=== PATIENT | male | born 1955 | race Caucasian/White ===

== ENCOUNTER 2024-08-07 09:37 | Inpatient (IN) | payer OTHER, SELFPAY ==
[2024-08-07] VITALS (10 sets, daily range): BP systolic 108–136; BP diastolic 65–110; BMI 22.3
--- NOTE | 2024-08-07 09:45 | PTCARENOTE ---
Patient admitted to IVU. SR on telemetry, call winchester in reach
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
[2024-08-07] MEDS: PROTONIX 40 MG PO (13:30)
[2024-08-07] MEDS: KCL 20 MEQ PO (13:31)
[2024-08-07] MEDS: LASIX 40 MG IV (13:31)
[2024-08-07] MEDS: COREG 3.125 MG PO ×2 (13:31→19:42)
[2024-08-07] MEDS: ROXICODONE 2.5 MG PO (13:31)
[2024-08-07] MEDS: LOW STRENGTH ASPIRIN 81 MG PO (13:31)
[2024-08-07 15:10] LABS: Hematocrit 46.1 % (39.0-52.0); Hemoglobin 16.3 g/dL (13.0-18.0); Mean Corp Hgb Conc. 35.4 g/dL (33.0-37.0); Mean Corpuscular Hgb 32.2 pg (27.0-31.0); Mean Corpuscular Volume 91.1 fL (80.0-94.0); Mean Platelet Volume 9.4 fL (7.4-10.4); Platelet Count 219 10^3/uL (130-400); Red Blood Cell Count 5.06 10^6/uL (4.70-6.10); Red Cell Dist. Width 15.9 % (11.5-14.5)
[2024-08-07 15:24] LABS: INR 1.14; PT 14.4 Sec (11.4-14.6)
[2024-08-07 15:25] LABS: APTT 31.9 Sec (23.4-35.0)
[2024-08-07 15:28] LABS: ALT (SGPT) 26 U/L (0-50); AST (SGOT) 38 U/L (17-59); Albumin 4.6 g/dl (3.5-5.0); Alkaline Phosphatase 91 U/L (38-126); Blood Urea Nitrogen 25 mg/dl (9-20); Calcium 9.9 mg/dl (8.4-10.2); Carbon Dioxide 26 mmol/L (22-30); Chloride 99 mmol/L (98-107); Direct Bilirubin 0.4 mg/dl (0.0-0.4); Estimated Creatinine Clearance 88 ml/min; Glucose 106 mg/dl (70-99); Potassium 4.7 mmol/L (3.5-5.1); Sodium 138 mmol/L (135-145); Total Bilirubin 1.6 mg/dl (0.2-1.3); Total Protein 7.3 g/dl (6.3-8.2); eGFR > 60.00
[2024-08-07] MEDS: VENTOLIN NEBULES 2.5 MG INH (16:04)
[2024-08-07] MEDS: LIPITOR 40 MG PO (16:26)
[2024-08-07] MEDS: NEURONTIN 100 MG PO ×2 (16:26→21:13)
[2024-08-07] MEDS: TYLENOL 650 MG PO (16:26)
[2024-08-07] MEDS: LOVENOX 40 MG SC (16:54)
--- NOTE | 2024-08-07 17:07 | PTCARENOTE ---
Patient with 9 out 10 back pain. Oxycodone dose increased to manage his pain control
[2024-08-07] MEDS: ROXICODONE 5 MG PO ×2 (17:22→21:12)
[2024-08-07] MEDS: COLACE PO (19:41)
--- NOTE | 2024-08-07 20:45 | PTCARENOTE ---
Pt. recieved at change of shift. Pt. seen and assessed in room. at bedside. Pt. Aox3, tele reading NSR, VS WNL. No complaints at this time. PT. verbalizes understanding of POC. Call winchester within reach. Continuing to monitor at this time.
[2024-08-07] MEDS: MELATONIN 5 MG PO (21:13)
[2024-08-08] VITALS (14 sets, daily range): BP systolic 99–136; BP diastolic 70–103; PULSE 68–104; BMI 22.2
[2024-08-08] MEDS: ROXICODONE 5 MG PO ×5 (01:39→22:36)
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
--- NOTE | 2024-08-08 09:31 | PTCARENOTE ---
Patient sent for his CT on a stretcher.
[2024-08-08 09:44] LABS: Glycohemoglobin (HgbA1c) 5.8 % (4.0-5.6)
[2024-08-08] MEDS: PROTONIX 40 MG PO (09:45)
[2024-08-08] MEDS: KCL 20 MEQ PO (09:45)
[2024-08-08] MEDS: NEURONTIN 100 MG PO ×3 (09:45→21:17)
[2024-08-08] MEDS: LOW STRENGTH ASPIRIN 81 MG PO (09:46)
[2024-08-08] MEDS: COLACE 100 MG PO ×2 (09:46→21:17)
[2024-08-08] MEDS: COREG 3.125 MG PO ×2 (09:46→21:17)
[2024-08-08] MEDS: LASIX 40 MG IV (09:46)
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
[2024-08-08 14:58] LABS: Hematocrit 48.9 % (39.0-52.0); Hemoglobin 16.8 g/dL (13.0-18.0); Mean Corp Hgb Conc. 34.4 g/dL (33.0-37.0); Mean Corpuscular Hgb 31.9 pg (27.0-31.0); Platelet Count 246 10^3/uL (130-400); Red Blood Cell Count 5.26 10^6/uL (4.70-6.10); White Blood Cell Count 4.8 10^3/uL (4.8-10.8)
[2024-08-08 15:50] LABS: Blood Urea Nitrogen 25 mg/dl (9-20); Carbon Dioxide 31 mmol/L (22-30); Chloride 95 mmol/L (98-107); Estimated Creatinine Clearance 78 ml/min; Glucose 106 mg/dl (70-99); Potassium 5.3 mmol/L (3.5-5.1); Sodium 141 mmol/L (135-145); eGFR > 60.00
[2024-08-08] MEDS: LOVENOX 40 MG SC (18:27)
[2024-08-08] MEDS: LIPITOR 40 MG PO (18:27)
[2024-08-08] MEDS: MELATONIN 5 MG PO (21:16)
[2024-08-09] VITALS (8 sets, daily range): BP systolic 104–136; BP diastolic 79–114; BMI 21.9
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
[2024-08-09] MEDS: ROXICODONE 5 MG PO ×5 (03:45→22:30)
[2024-08-09 04:53] LABS: ALT (SGPT) 32 U/L (0-50); AST (SGOT) 48 U/L (17-59); Albumin 4.4 g/dl (3.5-5.0); Alkaline Phosphatase 93 U/L (38-126); Blood Urea Nitrogen 28 mg/dl (9-20); Calcium 10.1 mg/dl (8.4-10.2); Carbon Dioxide 28 mmol/L (22-30); Chloride 98 mmol/L (98-107); Estimated Creatinine Clearance 77 ml/min; Glucose 102 mg/dl (70-99); Potassium 4.7 mmol/L (3.5-5.1); Sodium 137 mmol/L (135-145); Total Bilirubin 1.5 mg/dl (0.2-1.3); eGFR > 60.00
--- NOTE | 2024-08-09 05:27 | PTCARENOTE ---
Pt NSR on monitor, VSS. Denies pain, discomfort or SOB. Ambulates independently in the room. All safety measures in place.
[2024-08-09] MEDS: PROTONIX 40 MG PO (08:03)
[2024-08-09] MEDS: COLACE 100 MG PO ×2 (08:03→20:14)
[2024-08-09] MEDS: NEURONTIN 100 MG PO ×3 (08:04→21:35)
[2024-08-09] MEDS: LOW STRENGTH ASPIRIN 81 MG PO (08:04)
[2024-08-09] MEDS: COREG 3.125 MG PO ×2 (08:04→20:15)
--- NOTE | 2024-08-09 08:10 | PTCARENOTE ---
Assumed care of pt from prev nsg shift; pt AAOx3 w/no c/o CP or SOB. Pt c/o 08/19 low back pain, which is chronic for him. PRN PO Oxycodone administered as ordered. Pt's VS stable w/HR 70's, BP this AM 104/79. Pt SR w/occas PVC's on telemetry
monitoring. Pt awaiting U/S this AM. Pt w/call winchester in reach & plan of care ongoing.
--- NOTE | 2024-08-09 09:28 | W.PN.CD ---
Today's Communication / Plan
-
Cont coreg and further CABG pre-op testing
Impression / Plan
-
69-year-old gentleman with history of coronary artery disease with triple-vessel disease identified on recent cardiac catheterization on 08/06/2024, with history of thoracic aortic aneurysm, nonsustained ventricular tachycardia, hypertension
hyperlipidemia and likely ischemic cardiomyopathy with LVEF of 30% showing wall motion abnormalities.
Coronary artery disease
-Severe coronary disease with disease involving all 3 vessels and 100% LAD occluded with 100% RCA occluded filling with collaterals consistent with MARKETING DATABASE ANALYST and 80% of the circumflex and OM1 disease; left main also has moderate significant disease.
-CABG eval and surgery possibly late this week
-Continue aspirin, coreg 3.125 mg bid, and lipitor, holding ARB/ARNi and SGLT2i in anticipation of surgery
-BP 100s today, may limit GDMT, will have case management valdovinos ARNI and sglt2i
-CT surgery workup including PFTs, carotid duplex and CTA planned.
Ischemic cardiomyopathy w/ moderate to severely reduced EF 30%
-Significant wall motion abnormalities identified. Hopeful will improve with revascularization with CABG.
-RCA is MARKETING DATABASE ANALYST but fills from circumflex circulation
-GDMT as above
-Echo from jesse Moreno was uploaded and reviewed personally.
Physical Exam
Vital Signs/Labs
Vital Signs
Temp Pulse Resp BP Pulse Ox
97.7 F 74 18 104/79 18
08/09/24 07:52 08/09/24 07:47 08/09/24 07:52 08/09/24 07:47 08/09/24 07:52
08/08/24 08/09/24 08/10/24
06:59 06:59 06:59
Actual Weight 154 lb 12.232 oz 152 lb 12.485 oz
08/08/24 14:52
08/09/24 03:57
PT 14.4 Sec (11.4-14.6) 08/07/24 15:01
INR 1.14 08/07/24 15:01
APTT 31.9 Sec (23.4-35.0) 08/07/24 15:01
Physical Exam
Constitutional: No acute distress
EENT: Anicteric
Cardiovascular: Rhythm & rate is regular and Pedal edema is absent
Respiratory: Respiratory effort normal and Lungs clear to auscul.
GI: Soft
Neuro/Psych: AO x 3
Data Reviewed
-
Date of Service: August 09, 2024
EKG: Tracing Personally Visualized and interpreted (sr)
Echo: Report Reviewed by me
Labs: Labs Reviewed by me
[2024-08-09] MEDS: FLUSH (NSS) 2 FLUSH IV (09:51)
[2024-08-09] MEDS: LASIX 40 MG IV (09:51)
--- NOTE | 2024-08-09 13:30 | CM ---
Reviewed chart. Met with Mr. Crane to review discharge plans. He states prior to admission he resides with his spouse in a two story home with one step to enter. He states he has a bedroom/full bathroom on each level. He states he has a
[id number] in the first floor. He states his daughter is a student a [employer]. He states his spouse works in IT at the [employer]. He states prior to admission he was independent with ambulation and adls. He has a
rolling walker at home but currently is not using it. He states he has a prescription plan thru his spouse [employer]. Medical work-up in progress. The discharge plan is to return home with his spouse and [facility] when medically stable.
[2024-08-09] MEDS: LOVENOX 40 MG SC (17:07)
[2024-08-09] MEDS: LIPITOR 40 MG PO (17:08)
[2024-08-09 21:19] LABS: Hepatitis C Antibody Negative (Negative)
[2024-08-09] MEDS: MELATONIN 5 MG PO (21:35)
[2024-08-10] VITALS (8 sets, daily range): BP systolic 104–127; BP diastolic 75–104; BMI 21.8
[2024-08-10] MEDS: ROXICODONE 5 MG PO ×4 (04:44→20:05)
[2024-08-10] MEDS: COREG 3.125 MG PO ×2 (09:10→20:07)
[2024-08-10] MEDS: MIRALAX 17 GRAMS PO (09:10)
[2024-08-10] MEDS: COLACE 100 MG PO ×2 (09:11→20:07)
[2024-08-10] MEDS: FLUSH (NSS) 2 FLUSH IV (09:11)
[2024-08-10] MEDS: NEURONTIN 100 MG PO ×3 (09:11→20:05)
[2024-08-10] MEDS: LASIX 40 MG IV (09:11)
[2024-08-10] MEDS: PROTONIX 40 MG PO (09:11)
[2024-08-10] MEDS: LOW STRENGTH ASPIRIN 81 MG PO (09:12)
--- NOTE | 2024-08-10 09:45 | PTCARENOTE ---
Assumed care of pt from prev nsg shift; pt AAOx3 w/no c/o CP or SOB. Pt c/o 9/10 low back & neck pain. PRN PO Oxycodone administered as ordered. Pt's VS stable w/HR 70's, BP this AM elevated at 127/100. Will recheck after meds administered. Pt SR
w/occas PVC's on telemetry monitoring. Pt awaiting PFT this AM. Pt w/call winchester in reach & plan of care ongoing.
--- NOTE | 2024-08-10 10:39 | W.PN.CD ---
Today's Communication / Plan
-
CT Surgery eval underway
Impression / Plan
-
69-year-old gentleman with history of coronary artery disease with triple-vessel disease identified on recent cardiac catheterization on 08/06/2024, with history of thoracic aortic aneurysm, nonsustained ventricular tachycardia, hypertension
hyperlipidemia and likely ischemic cardiomyopathy with LVEF of 30% showing wall motion abnormalities.
Coronary artery disease
-Severe coronary disease with disease involving all 3 vessels and 100% LAD occluded with 100% RCA occluded filling with collaterals consistent with RV REPAIRER and 80% of the circumflex and OM1 disease; left main also has moderate significant disease.
-CABG eval and surgery possibly late this week
-Continue aspirin, coreg 3.125 mg bid, and lipitor, holding ARB/ARNi and SGLT2i in anticipation of surgery
-BP 100s today, may limit GDMT, will have case management valdovinos ARNI and sglt2i
-CT surgery workup including PFTs, carotid duplex and CTA planned.
Ischemic cardiomyopathy w/ moderate to severely reduced EF 30%
-Significant wall motion abnormalities identified. Hopeful will improve with revascularization with CABG.
-RCA is RV REPAIRER but fills from circumflex circulation
-GDMT as above
-Echo from jesse Moreno was uploaded and reviewed personally.
NSVT
- One episode 6 beats at 1726 hrs on 08/09/2024
Subjective:
No CP or palps
Physical Exam
Vital Signs/Labs
Vital Signs
Temp Pulse Resp BP Pulse Ox
98.8 F 79 20 127/100 96
08/10/24 08:16 08/10/24 08:30 08/10/24 08:16 08/10/24 08:25 08/10/24 08:16
08/09/24 08/10/24 08/11/24
06:59 06:59 06:59
Actual Weight 69.3 kg 69 kg
08/08/24 14:52
08/09/24 03:57
PT 14.4 Sec (11.4-14.6) 08/07/24 15:01
INR 1.14 08/07/24 15:01
APTT 31.9 Sec (23.4-35.0) 08/07/24 15:01
Physical Exam
Constitutional: No acute distress
EENT: Anicteric
Cardiovascular: Rhythm & rate is regular and Pedal edema is absent
Respiratory: Respiratory effort normal and Lungs clear to auscul.
GI: Soft and Distention absent
Neuro/Psych: AO x 3
Data Reviewed
-
Date of Service: August 10, 2024
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
[2024-08-10] MEDS: LOVENOX 40 MG SC (17:55)
[2024-08-10] MEDS: LIPITOR 40 MG PO (17:55)
[2024-08-10] MEDS: MELATONIN 5 MG PO (20:05)
[2024-08-10] MEDS: DUONEB 3 ML INH (20:49)
[2024-08-11] MEDS: ROXICODONE 5 MG PO ×4 (00:27→20:51)
[2024-08-11 05:37] VITALS: BP 140/96
[2024-08-11 06:00] VITALS: BMI 21.8
[2024-08-11 07:31] VITALS: BP 118/92
[2024-08-11] MEDS: DUONEB 3 ML INH ×3 (07:42→19:19)
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
[2024-08-11] MEDS: PROTONIX 40 MG PO (08:46)
[2024-08-11] MEDS: FLUSH (NSS) 2 FLUSH IV (08:46)
[2024-08-11] MEDS: COLACE 100 MG PO ×2 (08:46→20:46)
[2024-08-11] MEDS: LOW STRENGTH ASPIRIN 81 MG PO (08:46)
[2024-08-11] MEDS: COREG 3.125 MG PO ×2 (08:46→20:46)
[2024-08-11] MEDS: LASIX 40 MG IV (08:46)
[2024-08-11] MEDS: NEURONTIN 100 MG PO ×3 (08:46→22:37)
--- NOTE | 2024-08-11 09:12 | W.PN.UPDATE ---
Update Note
Progress Note Update
pt seen and examined
cath and imaging reviewed
I agree he is a candidate for high risk cabg given significant lung disease and significant LV dysfunction
Risks, complications, benefits and alternatives all reviewed with patient
He appears to understand and is agreeable to proceed.
check echo today
repeat bili
cabg Friday am
--- NOTE | 2024-08-11 09:16 | W.PN.CD ---
Today's Communication / Plan
-
Dr. Townsend plans high risk CABG Friday
NSVT noted, continue telemetry
For echo today
52 min today spent reviewing extensive data (all the precabg testing) and pulmonary notes, seeing pt, reviewing tele, preparing this document
Impression / Plan
-
69-year-old gentleman with history of coronary artery disease with triple-vessel disease identified on recent cardiac catheterization on 08/06/2024, with history of thoracic aortic aneurysm, nonsustained ventricular tachycardia, hypertension
hyperlipidemia and likely ischemic cardiomyopathy with LVEF of 30% showing wall motion abnormalities.
Coronary artery disease
-Severe coronary disease with disease involving all 3 vessels and 100% LAD occluded with 100% RCA occluded filling with collaterals consistent with TINSMITH APPRENTICE and 80% of the circumflex and OM1 disease; left main also has moderate significant disease.
-CABG eval => for high risk CABG 08/13/2024
-Continue aspirin, coreg 3.125 mg bid, and lipitor, holding ARB/ARNi and SGLT2i in anticipation of surgery
-BP 100-120 over 24 hrs
- case management valdovinos ARNI and sglt2i
Ischemic cardiomyopathy w/ moderate to severely reduced EF 30%
-Significant wall motion abnormalities identified. Hopeful will improve with revascularization with CABG.
-RCA is TINSMITH APPRENTICE but fills from circumflex circulation
-GDMT as above
Lung disease, see PFTs, imaging studies, and pulmonary notes
- COPD, low DLCO, low FEV1, extrinsic restriction as well from kyphosis/scoliosis
- Pulmonary involved
Thoracic aorta enlargement noted on CT: ascending aorta, short axis diameter 4.1 cm
NSVT
- One episode 6 beats at 1726 hrs on 08/09/2024 and a 4 beat epsiode since
Subjective:
No CP or palps
Physical Exam
Vital Signs/Labs
Vital Signs
Temp Pulse Resp BP Pulse Ox
98.5 F 72 16 118/92 96
08/11/24 07:29 08/11/24 07:45 08/11/24 07:45 08/11/24 07:31 08/11/24 08:36
08/10/24 08/11/24 08/12/24
06:59 06:59 06:59
Actual Weight 69 kg 68.8 kg
08/08/24 14:52
08/09/24 03:57
PT 14.4 Sec (11.4-14.6) 08/07/24 15:01
INR 1.14 08/07/24 15:01
APTT 31.9 Sec (23.4-35.0) 08/07/24 15:01
Physical Exam
Constitutional: No acute distress
EENT: Anicteric
Cardiovascular: Rhythm & rate is regular and Pedal edema is absent
Respiratory: Respiratory effort normal and Lungs clear to auscul.
GI: Soft and Distention absent
Neuro/Psych: Alert
Data Reviewed
-
Date of Service: August 11, 2024
--- NOTE | 2024-08-11 09:34 | PTCARENOTE ---
Assumed care of pt from prev nsg shift; pt AAOx3 w/no c/o CP or SOB. Pt c/o 07/20 low back & neck pain. PRN PO Oxycodone administered by prev nsg shift. Pt advised of the next time he is able to receive PRN oxycodone. Pt's VS stable w/HR 70's, BP
this AM elevated at 118/92. Pt SR w/occas PVC's on telemetry monitoring. Pt w/call [place] in reach & plan of care ongoing.
--- NOTE | 2024-08-11 09:58 | W.PN.UPDATE ---
Update Note
Progress Note Update
Simulated Patient Summary
Procedure Type:�Isolated CABG
PERIOPERATIVE OUTCOME ESTIMATE %
Operative Mortality 2.54%
Morbidity & Mortality 9.98%
Stroke 1.5%
Renal Failure 0.68%
Reoperation 4.33%
Prolonged Ventilation 4.77%
Deep Sternal Wound Infection 0.069%
Long Hospital Stay (>14 days) 5.05%
Short Hospital Stay (<6 days)* 35.1%
*higher values reflect a better outcome
Clinical Summary
Planned Surgery: Isolated CABG, Urgent, First cardiovascular surgery
Demographics: 69 year old, White, male, 68kg, 178cm, BMI: 21.5 kg/m�
Insurance/Payor: Commercial
Lab Values: Creatinine: 0.9 mg/dL, Hematocrit: 48%, WBC Count: 4.8 10�/�L, Platelet Count: 537142 cells/�L
Substance Abuse: Former smoker, Alcohol use: <=1 drink/week
Risk Factors / Comorbidities: Hypertension, Family Hx of CAD
Pulmonary RF: Severe CLD
Vascular RF: Cerebrovascular Disease: TIA
Cardiac Status: Ejection Fraction = 30%
Coronary Artery Disease: 3 vessels diseased, Proximal LAD Stenosis >=70%, Non-ST Elevation WA, WA: 1 to 7 Days
Valve Disease: Moderate MR, Mild TR
Arrhythmia:
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
[2024-08-11 11:50] VITALS: BP 107/80
--- NOTE | 2024-08-11 12:50 | CARDSERVLU ---
Echocardiogram with [facility] completed after protocol screening completed. Allergies verified.
Patent IV site: __L AC___
IV site flushed with 0.9% NaCl pre and post administration.
Diluted bolus method utilized to enhance visualization of ventricular thakkar.
Total volume given: _2___ mL
Patient tolerated all procedures well without complications.
--- NOTE | 2024-08-11 13:47 | CM ---
Chart reviewed. Patient is independent of ADLS, lives with his in a 2 [address], 1 TALHA, 0 DME. Patient is going for surgery on Friday. Plan is for the patient to return home with CT Transitional RN. CM to follow
[2024-08-11 15:04] VITALS: BP 115/91
--- NOTE | 2024-08-11 15:54 | CM ---
Reviewed preoperative and postoperative instructions and restrictions, along with showering guidelines. Gave patient CT Surgery Book. Patient may be out of driving radius for CT Transitional RN. Plan is for the patient to return home with CT
Transitional RN vs VN. CM to follow
[2024-08-11] MEDS: LIPITOR 40 MG PO (16:28)
[2024-08-11 19:08] VITALS: BP 135/91
[2024-08-11 22:35] VITALS: BP 116/88
[2024-08-11] MEDS: MELATONIN 5 MG PO (22:36)
--- NOTE | 2024-08-11 23:19 | PTCARENOTE ---
Pt rec'd sitting on side of bed at change of shift talking with spouse. Sinus on telemetry with occ pvc's noted. Medicated for pain 8 out of 10 for various places lower back, left side face. IS encouraged.
[2024-08-12] VITALS (10 sets, daily range): BP systolic 112–126; BP diastolic 84–100; BMI 21.6
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
[2024-08-12 05:42] LABS: ALT (SGPT) 39 U/L (0-50); AST (SGOT) 48 U/L (17-59); Albumin 4.3 g/dl (3.5-5.0); Alkaline Phosphatase 92 U/L (38-126); Blood Urea Nitrogen 27 mg/dl (9-20); Calcium 9.6 mg/dl (8.4-10.2); Carbon Dioxide 32 mmol/L (22-30); Chloride 93 mmol/L (98-107); Estimated Creatinine Clearance 76 ml/min; Glucose 93 mg/dl (70-99); Potassium 4.3 mmol/L (3.5-5.1); Sodium 137 mmol/L (135-145); Total Bilirubin 1.6 mg/dl (0.2-1.3); eGFR > 60.00
[2024-08-12] MEDS: LOW STRENGTH ASPIRIN 81 MG PO (07:29)
[2024-08-12] MEDS: COREG 3.125 MG PO ×2 (07:29→20:14)
[2024-08-12] MEDS: NEURONTIN 100 MG PO ×3 (07:29→22:24)
[2024-08-12] MEDS: PROTONIX 40 MG PO (07:29)
[2024-08-12] MEDS: COLACE 100 MG PO ×2 (07:30→20:14)
[2024-08-12] MEDS: LASIX 40 MG IV (07:30)
[2024-08-12] MEDS: DUONEB 3 ML INH ×3 (08:11→19:21)
--- NOTE | 2024-08-12 09:48 | CM ---
Reviewed chart. Met with Mr. Crane to review discharge plans. He states he is scheduled for surgery on 08/13/24. He is not sure if he spouse will be here or stay home during the surgery. He is asking about [facility] paperwork for his spouse to
take off to assist in his care. Prior to admission he resides with his spouse in a two story home. He has a bedroom/full bathroom on both levels of the home. His spouse works outside the home at [employer] in IT. Prior to
admission he was independent with ambulation and adls. He states he has a walker at home but currently not using it. He has a prescription plan. Medical work-up in [facility]. The discharge plan is to return home with his spouse and [facility] when
medically stable.
--- NOTE | 2024-08-12 11:37 | W.PN.CD ---
Today's Communication / Plan
-
High risk CABG tomorrow
NSVT on tele
GDMT after surgery
Impression / Plan
-
69-year-old gentleman with history of coronary artery disease with triple-vessel disease identified on recent cardiac catheterization on 08/06/2024, with history of thoracic aortic aneurysm, nonsustained ventricular tachycardia, hypertension
hyperlipidemia and likely ischemic cardiomyopathy with LVEF of 30% showing wall motion abnormalities.
Coronary artery disease
-Severe coronary disease with disease involving all 3 vessels and 100% LAD occluded with 100% RCA occluded filling with collaterals consistent with SPARES SCHEDULER and 80% of the circumflex and OM1 disease; left main also has moderate significant disease.
-CABG eval => for high risk CABG 08/13/2024
-Continue aspirin, coreg 3.125 mg bid, and lipitor, holding ARB/ARNi and SGLT2i in anticipation of surgery
-BP 100-120 over 24 hrs
- case management valdovinos ARNI and sglt2i
Ischemic cardiomyopathy w/ moderate to severely reduced EF 30%
-Significant wall motion abnormalities identified. Hopeful will improve with revascularization with CABG.
-RCA is SPARES SCHEDULER but fills from circumflex circulation
-GDMT as above
Lung disease, see PFTs, imaging studies, and pulmonary notes
- COPD, low DLCO, low FEV1, extrinsic restriction as well from kyphosis/scoliosis
- Pulmonary involved
Thoracic aorta enlargement noted on CT: ascending aorta, short axis diameter 4.1 cm
NSVT
- One episode 6 beats at 1726 hrs on 08/09/2024 and a 4 beat episode since
-rare
Subjective:
Overall feeling OK anxious about surgery tomorrow
Echo:CONCLUSIONS
Mildly dilated left ventricle with severely reduced systolic function. Left
ventricular ejection fraction is 25 to 30%. Global hypokinesis. No
intracardiac thrombus.
Right ventricle is normal in size with mildly reduced function.
Mild mitral regurgitation.
Mild tricuspid regurgitation. Estimated PASP 25 mmHg.
Mildly dilated ascending aorta.
No prior study available for comparison.
Physical Exam
Vital Signs/Labs
Vital Signs
Temp Pulse Resp BP Pulse Ox
98.2 F 74 16 120/90 95
08/12/24 07:41 08/12/24 08:16 08/12/24 08:16 08/12/24 07:44 08/12/24 08:16
08/11/24 08/12/24 08/13/24
06:59 06:59 06:59
Actual Weight 151 lb 10.848 oz 150 lb 5.684 oz
08/08/24 14:52
08/12/24 04:41
PT 14.4 Sec (11.4-14.6) 08/07/24 15:01
INR 1.14 08/07/24 15:01
APTT 31.9 Sec (23.4-35.0) 08/07/24 15:01
Physical Exam
Constitutional: No acute distress and Comfortable
EENT: Anicteric
Cardiovascular: Rhythm & rate is regular and Pedal edema is absent
Respiratory: Respiratory effort normal and Lungs clear to auscul.
GI: Soft
Neuro/Psych: AO x 3
Data Reviewed
-
Date of Service: August 12, 2024
EKG: Tracing Personally Visualized and interpreted (sr)
Echo: Report Reviewed by me
Labs: Labs Reviewed by me
--- NOTE | 2024-08-12 12:05 | PTCARENOTE ---
Pt received this am with no c/o of any chest pain or sob. OOB ad capo in the room, gait steady.
[2024-08-12] MEDS: ROXICODONE 5 MG PO ×3 (13:19→22:23)
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
[2024-08-12] MEDS: LIPITOR 40 MG PO (17:28)
--- NOTE | 2024-08-12 18:13 | PTCARENOTE ---
Pt with no c/o of any chest pain or sob. Ambulating in the room and hallway, gait steady.
[2024-08-12] MEDS: MELATONIN 5 MG PO (22:23)
[2024-08-13] VITALS (15 sets, daily range): BP systolic 96–130; BP diastolic 69–98; BMI 24.4
--- NOTE | 2024-08-13 00:10 | PTCARENOTE ---
Vape pen visible on patients table. this RN educated patient and spouse on hospital smoking policy and danger of smoking in room. patient verbalized understanding. nursing case supervisor-Hedy made aware. vape sent home with spouse.
--- NOTE | 2024-08-13 00:13 | PTCARENOTE ---
CVOR prep completed. patient tolerated well. denies any cp/sob. complains of neck and lower back pain-PRN oxycodone given, see mar. reviewed plan of care with patient and verbalized understanding. call [place] within reach. NPO at midnight.
[2024-08-13] MEDS: LOPRESSOR 25 MG PO (06:15)
[2024-08-13] MEDS: MAGNESIUM OXIDE 500 MG PO (06:15)
[2024-08-13] MEDS: PROTONIX 40 MG PO (06:15)
[2024-08-13] MEDS: BACTROBAN 2% OINTMENT 1 APPLIC NASAL ×2 (06:20→21:03)
--- NOTE | 2024-08-13 06:57 | W.CVOR.SURPR ---
CVOR Surgeon Immed Pre Op
-
I have examined this patient prior to performance of the scheduled procedure.
The patient's condition is unchanged from the time of the dictated/written History and
Physical and the patient is able to undergo the scheduled procedure.
[2024-08-13 07:35] LABS: ACT+ - POC 109 Seconds (82-134)
[2024-08-13] MEDS: DUONEB INH (08:01)
[2024-08-13 08:11] LABS: Urine Albumin Negative (Neg - Trace); Urine Bilirubin Negative (Negative); Urine Character Clear (Clear); Urine Color Yellow; Urine Glucose Negative (Negative); Urine Ketone Negative (Negative); Urine Leukocyte Negative (Negative); Urine Nitrite Negative (Negative); Urine Occult Blood Negative (Negative); Urine Urobilinogen Negative (Neg - 1+)
--- NOTE | 2024-08-13 09:13 | CM ---
Addendum entered by MICHELLE Cid 08/13/24 14:31:
Referral sent to [facility] as [facility] Transitional Care RN unable to visit due to geographical area.
[facility] able to accept.
Will update them on DC date.
Original Note:
Patient in OR today for CABG.
Pt. resides in a 2 story home w/ spouse. Functionally, patient is indep. w/ ADLs, mobility without the use of any assisted device.
Anticipate DC to home once medically stable w/ ? CT Transitional Care RN, if geographical area is feasible.
Will follow.
[2024-08-13 09:39] LABS: ACT+ - POC 625 Seconds (82-134)
[2024-08-13 10:29] LABS: B.E. - POC 3.1 mmol/L; Glucose - POC 105 mg/dl (70-99); HCO3 - POC 29 mmol/L (21-29); Hematocrit - POC 49 % PCV (42-52); Hemodilution- POC Yes; Hemoglobin Calculated - POC 16.6; Ionized Calcium - POC 1.23 mmol/L (1.12-1.27); O2 Saturation %Calculated-POC 98.5 5 (92-96); PCO2 - POC 46 mmHg (35-45); PO2 - POC 116 mmHg (80-100); POC Comment PRE; Potassium - POC 3.9 mmol/L (3.6-5.0); Sodium - POC 136 mmol/L (135-145)
[2024-08-13 10:36] LABS: ACT+ - POC 473 Seconds (82-134)
[2024-08-13 10:53] LABS: ACT+ - POC 384 Seconds (82-134)
[2024-08-13 11:03] LABS: ACT+ - POC 623 Seconds (82-134)
[2024-08-13 11:55] LABS: ACT+ - POC 123 Seconds (82-134)
[2024-08-13 12:01] LABS: B.E. - POC 0.5 mmol/L; Glucose - POC 175 mg/dl (70-99); HCO3 - POC 25 mmol/L (21-29); Hematocrit - POC 44 % PCV (42-52); Hemodilution- POC Yes; Hemoglobin Calculated - POC 14.8; Ionized Calcium - POC 1.09 mmol/L (1.12-1.27); O2 Saturation %Calculated-POC 99.9 5 (92-96); PCO2 - POC 38 mmHg (35-45); PO2 - POC 322 mmHg (80-100); POC Comment OFF PUMP; Potassium - POC 5.1 mmol/L (3.6-5.0); Sodium - POC 135 mmol/L (135-145); pH - POC 7.42 (7.35-7.45)
[2024-08-13 12:01] LABS: Glucose - POC 190 mg/dl (70-99); HCO3 - POC 26 mmol/L (21-29); Hematocrit - POC 43 % PCV (42-52); Hemodilution- POC Yes; Hemoglobin Calculated - POC 14.6; Ionized Calcium - POC 1.12 mmol/L (1.12-1.27); PCO2 - POC 41 mmHg (35-45); PO2 - POC 413 mmHg (80-100); POC Comment POST; Potassium - POC 5.4 mmol/L (3.6-5.0); Sodium - POC 136 mmol/L (135-145); pH - POC 7.41 (7.35-7.45)
--- NOTE | 2024-08-13 12:29 | W.PN.CT.SURG ---
CT Surgery Operative Note
-
Pre-op Diagnosis: CAD
severe LV dysfuncti on
CHF
COPD
Post-op Diagnosis: Same
Procedure: Cabg x 3, off pump
alvarez- lad
ao-svg- om/pda
LAAL #40 clip
RSF
REVH
Primary Surgeon: bloom
Assisting Surgeons: Dr Donohue, PGY2 [facility] Fellow
Pat Murt - leg and chest
Specimen: None
Cultures: None
Complications / Blood Loss: None
Findings: Talon with EF 20% preop, no real change postop
Mod MR unchanged
CHERRIE without clot, occluded and no residual pouch post clip
Good MIRELA
Fair vein
diffuse cad
poor pda target
Dense left pleural adhesions
--- NOTE | 2024-08-13 12:45 | PTCARENOTE ---
received pt from CVOR. pt Sinus Walter per tele HR 50s,epicardial V wire set to 45 10, + peripheral pulses, no edema, L radial A-line level and zeroed BP 110/70 on 3 Levo, RIJ cordis w/ [place] floated 42 PAP 45/25, CO 3.05, CI 1.71, CVP 13, pt
intubated w/ 8.0 ET tube at 24cm at right lip, vent set to SIMV 40%, 500, 14, +5 Peep, pox 97%, Ct x2 draiing minimal amount of red blood, simon draining clear yellow urine, sternum & R leg incision stable, PIV flushes easily, CPOT 0, RASS -5
Levo 3
Insulin 2
Precedex 0.4
[2024-08-13 12:52] LABS: Glucose - Point of Care 154 mg/dl (70-99)
[2024-08-13 13:03] LABS: Hematocrit 42.3 % (39.0-52.0); Hemoglobin 14.6 g/dL (13.0-18.0); Platelet Count 225 10^3/uL (130-400)
[2024-08-13 13:07] LABS: B.E. -0.9 mmol/L; HCO3 24.3 mmol/L (21-28); Ionized Calcium 1.08 mMOL/L (1.15-1.33); O2 Saturation % 99.6 % (94-98); O2 Therapy VENT; PCO2 41 mmHg (35-48); PO2 120 mmHg (83-108); Potassium 4.4 mMOL/L (3.5-5.1); Sodium 130 mMOL/L (136-145); pH 7.38 (7.35-7.45)
[2024-08-13 13:16] LABS: Blood Urea Nitrogen 23 mg/dl (9-20); Estimated Creatinine Clearance 91 ml/min; Glucose 168 mg/dl (70-99); Magnesium 2.2 mg/dl (1.6-2.3)
[2024-08-13 13:21] LABS: INR 1.38; PT 16.8 Sec (11.4-14.6)
[2024-08-13 13:22] LABS: APTT 29.5 Sec (23.4-35.0)
[2024-08-13] MEDS: CALCIUM CHLORIDE 10% SYRINGE 50 MG IV (13:48)
[2024-08-13] MEDS: CALCIUM CHLORIDE 10% SYRINGE 50 ML IV (13:48)
[2024-08-13] MEDS: NSS 500 IV (13:49)
[2024-08-13] MEDS: NEURONTIN PO ×2 (13:49→15:20)
[2024-08-13] MEDS: DUONEB 3 ML INH ×2 (13:52→19:53)
[2024-08-13 14:08] LABS: Glucose - Point of Care 154 mg/dl (70-99)
--- NOTE | 2024-08-13 14:40 | PTCARENOTE ---
pt awake, following simple commands, placed on CPAP wean by RT.
[2024-08-13] MEDS: TYLENOL PO (14:42)
[2024-08-13] MEDS: OFIRMEV 100 IV (15:05)
--- NOTE | 2024-08-13 15:07 | W.PN.CD ---
Addendum entered and electronically signed by Tanvir Pitt MD 08/13/24 15:25:
69 yo male with PMH of CAD, ICM EF 20% on post op DOMINIQUE is now post op from CABG and CHERRIE clip. He is weaning from drips and vent. Exam with RRR, no murmurs, trace edema. Tele: SR/SB 50s-60s.
We will advance GDMT as he recovers from OR.
Original Note:
Today's Communication / Plan
-
routine post-op care per CTS.
Impression / Plan
-
69-year-old gentleman with history of coronary artery disease with triple-vessel disease identified on recent cardiac catheterization on 08/06/2024, with history of thoracic aortic aneurysm, nonsustained ventricular tachycardia, hypertension,
hyperlipidemia and likely ischemic cardiomyopathy with LVEF of 30% showing wall motion abnormalities.
Coronary artery disease - severe 3 vessel disease on cath.
- 100% LAD occluded with 100% RCA occluded filling with collaterals consistent with CAMPUS MONITOR and 80% of the circumflex and OM1 disease; left main also has moderate significant disease.
- s/p CABG x 3 with CHERRIE clip 08/13/[address] Townsend.
- post-op care per CTS.
Ischemic cardiomyopathy with moderate to severely reduced EF 30% - EF 20% on preop DOMINIQUE.
- significant wall motion abnormalities identified. Hopeful will improve with revascularization with CABG.
- continue Coreg.
- case management to valdovinos ARNI and SGLT2i.
Lung disease - pulmonary following.
- COPD, low DLCO, low FEV1, extrinsic restriction as well from kyphosis/scoliosis.
Thoracic aorta enlargement noted on CT - ascending aorta, short axis diameter 4.1 cm
NSVT - one episode 6 beats at 1726 hrs on 08/09/2024 and a 4 beat episode since.
- tele stable w/o recurrence.
Echo:CONCLUSIONS
Mildly dilated left ventricle with severely reduced systolic function. Left
ventricular ejection fraction is 25 to 30%. Global hypokinesis. No
intracardiac thrombus.
Right ventricle is normal in size with mildly reduced function.
Mild mitral regurgitation.
Mild tricuspid regurgitation. Estimated PASP 25 mmHg.
Mildly dilated ascending aorta.
No prior study available for comparison.
Physical Exam
Vital Signs/Labs
Vital Signs
Temp Pulse Resp BP Pulse Ox
98.9 F 66 26 105/75 92
08/13/24 15:00 08/13/24 14:00 08/13/24 15:00 08/13/24 14:00 08/13/24 15:00
08/12/24 08/13/24 08/14/24
06:59 06:59 06:59
Actual Weight 151 lb 0.266 oz
08/13/24 12:52
PT 16.8 Sec (11.4-14.6) H 08/13/24 12:52
INR 1.38 08/13/24 12:52
APTT 29.5 Sec (23.4-35.0) 08/13/24 12:52
Magnesium 2.2 mg/dl (1.6-2.3) 08/13/24 12:52
Physical Exam
Constitutional: Other (intubated/sedated on vent post-op)
EENT: Anicteric
Cardiovascular: Rhythm & rate is regular
Respiratory: Respiratory effort normal, Lungs clear to auscul. and Other (intubated/sedated on vent)
GI: Soft and Distention absent
Neuro/Psych: Other (sedated/intubated on vent, eyes open)
Other: Skin (warm, dry)
Data Reviewed
-
Date of Service: August 13, 2024
Medical Decision Making: Reviewed Test Results
EKG: Tracing Personally Visualized and interpreted
Echo: Report Reviewed by me
Medical Tests (PFT, Pathology etc): Image Personally Visualized and interpreted
Labs: Labs Reviewed by me
Old Records: Reviewed
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
[2024-08-13 15:14] LABS: Glucose - Point of Care 82 mg/dl (70-99)
[2024-08-13] MEDS: COLACE PO (15:19)
[2024-08-13] MEDS: LOW STRENGTH ASPIRIN PO (15:20)
[2024-08-13] MEDS: PROTONIX PO (15:20)
[2024-08-13] MEDS: LASIX IV (15:20)
[2024-08-13] MEDS: COREG PO (15:20)
[2024-08-13 15:27] LABS: B.E. 0.5 mmol/L; O2 Saturation % 93.3 % (94-98); PCO2 44 mmHg (35-48); Potassium 4.2 mMOL/L (3.5-5.1); Sodium 132 mMOL/L (136-145); pH 7.38 (7.35-7.45)
[2024-08-13 15:31] LABS: PO2 59 mmHg (83-108)
--- NOTE | 2024-08-13 15:33 | PTCARENOTE ---
abg reviewed w CT JESSENIA, instructed to proceed w extubation.
--- NOTE | 2024-08-13 15:37 | PTCARENOTE ---
pt extubated to 6L NC, POX 93%.
[2024-08-13] MEDS: DILAUDID 0.25 MG IV (15:42)
--- NOTE | 2024-08-13 15:47 | RESPNOTE ---
Patient extubated per WATER QUALITY MANAGER-C, onto O2 6L without complications.
[2024-08-13 15:57] LABS: Glucose - Point of Care 103 mg/dl (70-99)
[2024-08-13] MEDS: TORADOL 15 MG IV (16:18)
[2024-08-13 16:35] LABS: Hematocrit 42.5 % (39.0-52.0); Hemoglobin 14.9 g/dL (13.0-18.0)
[2024-08-13] MEDS: NEURONTIN 100 MG PO ×2 (16:59→21:02)
[2024-08-13] MEDS: PACERONE 200 MG PO ×2 (17:01→21:02)
[2024-08-13 17:10] LABS: Glucose - Point of Care 94 mg/dl (70-99)
[2024-08-13 17:32] LABS: Platelet Count 219 10^3/uL (130-400)
[2024-08-13] MEDS: LIPITOR 40 MG PO (17:54)
[2024-08-13] MEDS: FLEXERIL 5 MG PO (17:54)
[2024-08-13] MEDS: LOW STRENGTH ASPIRIN 81 MG PO (17:54)
[2024-08-13] MEDS: ROXICODONE 5 MG PO ×2 (17:54→23:26)
[2024-08-13 18:07] LABS: Glucose - Point of Care 90 mg/dl (70-99)
[2024-08-13] MEDS: DILAUDID 0.5 MG IV ×2 (19:26→22:26)
[2024-08-13] MEDS: SENOKOT-S 1 TABLET PO (19:29)
[2024-08-13] MEDS: ANCEF 5 IV (19:29)
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
[2024-08-13 20:14] LABS: Glucose - Point of Care 102 mg/dl (70-99)
[2024-08-13 20:29] LABS: B.E. 0.3 mmol/L; HCO3 24.6 mmol/L (21-28); Ionized Calcium 1.29 mMOL/L (1.15-1.33); O2 Saturation % 97.2 % (94-98); PCO2 38 mmHg (35-48); PO2 71 mmHg (83-108); Potassium 4.6 mMOL/L (3.5-5.1); pH 7.42 (7.35-7.45)
[2024-08-13 20:31] LABS: Mixed Venous O2 Saturation 64.6 %
[2024-08-13 20:32] LABS: O2 Therapy %Oxygen/Room Air 6L
[2024-08-13] MEDS: TYLENOL 1000 MG PO (21:02)
[2024-08-13] MEDS: MELATONIN 5 MG PO (21:02)
[2024-08-13 22:14] LABS: Glucose - Point of Care 92 mg/dl (70-99)
[2024-08-14] VITALS (21 sets, daily range): BP systolic 96–139; BP diastolic 57–108; PULSE 74; O2SAT 79–92; BMI 25.2
--- NOTE | 2024-08-14 | PTCARENOTE ---
Patient reassessed. VSS. Remains SR on the monitor. Patient's pain management performed with Erica, Dilaudid, Tylenol, and Toradol. At this time pain level has improved still not at tolerable levels as reported by patient. Will continue to treat
according to parameters. Patient otherwise stable.
[2024-08-14 00:10] LABS: Glucose - Point of Care 109 mg/dl (70-99)
[2024-08-14] MEDS: TORADOL 15 MG IV (00:31)
[2024-08-14 01:04] LABS: Glucose - Point of Care 98 mg/dl (70-99)
[2024-08-14 02:15] LABS: Glucose - Point of Care 100 mg/dl (70-99)
[2024-08-14 03:14] LABS: Glucose - Point of Care 97 mg/dl (70-99)
[2024-08-14] MEDS: DILAUDID 0.5 MG IV ×2 (03:50→21:29)
[2024-08-14] MEDS: ANCEF 5 IV ×2 (03:51→12:18)
[2024-08-14 04:07] LABS: Hematocrit 38.6 % (39.0-52.0); Hemoglobin 13.7 g/dL (13.0-18.0); Mean Corp Hgb Conc. 35.5 g/dL (33.0-37.0); Mean Corpuscular Hgb 33.3 pg (27.0-31.0); Mean Corpuscular Volume 93.7 fL (80.0-94.0); Mean Platelet Volume 10.5 fL (7.4-10.4); Platelet Count 173 10^3/uL (130-400); Red Blood Cell Count 4.12 10^6/uL (4.70-6.10); Red Cell Dist. Width 14.6 % (11.5-14.5); White Blood Cell Count 15.8 10^3/uL (4.8-10.8)
[2024-08-14 04:09] LABS: Glucose - Point of Care 108 mg/dl (70-99)
[2024-08-14 04:31] LABS: Blood Urea Nitrogen 27 mg/dl (9-20); Calcium 9.2 mg/dl (8.4-10.2); Carbon Dioxide 22 mmol/L (22-30); Chloride 102 mmol/L (98-107); Estimated Creatinine Clearance 80 ml/min; Glucose 95 mg/dl (70-99); Magnesium 2.1 mg/dl (1.6-2.3); Potassium 4.6 mmol/L (3.5-5.1); Sodium 135 mmol/L (135-145); eGFR > 60.00
[2024-08-14] MEDS: TYLENOL 1000 MG PO ×3 (05:11→21:15)
[2024-08-14 05:17] LABS: Glucose - Point of Care 94 mg/dl (70-99)
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
--- NOTE | 2024-08-14 06:30 | PTCARENOTE ---
Patient reassessed remains in SR on the monitor. Patient delined. Tom removed. DTV 1200. Assisted patient oob to chair without incident. Pain management continues.
[2024-08-14] MEDS: ROXICODONE 5 MG PO ×3 (06:33→19:51)
[2024-08-14] MEDS: DUONEB 3 ML INH ×3 (07:15→19:40)
[2024-08-14 07:22] LABS: Glucose - Point of Care 110 mg/dl (70-99)
[2024-08-14] MEDS: NEURONTIN 100 MG PO ×3 (08:49→21:15)
[2024-08-14] MEDS: SENOKOT-S 1 TABLET PO ×2 (08:49→19:51)
[2024-08-14] MEDS: MAGNESIUM OXIDE 500 MG PO ×2 (08:49→19:50)
[2024-08-14] MEDS: PROTONIX 40 MG PO (08:49)
[2024-08-14] MEDS: PACERONE 200 MG PO ×3 (08:49→21:15)
[2024-08-14] MEDS: BACTROBAN 2% OINTMENT 1 APPLIC NASAL ×2 (08:50→19:51)
[2024-08-14] MEDS: LOW STRENGTH ASPIRIN 81 MG PO (08:50)
[2024-08-14] MEDS: LOPRESSOR 12.5 MG PO (08:50)
[2024-08-14] MEDS: PLAVIX 75 MG PO (08:50)
[2024-08-14] MEDS: LIDOCAINE 4% PATCH 1 PATCH TOPICAL (08:50)
[2024-08-14 08:56] LABS: Glucose - Point of Care 101 mg/dl (70-99)
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
--- NOTE | 2024-08-14 09:53 | W.PN.CD ---
Today's Communication / Plan
-
continue Toprol XL 12.5mg bid and titrate
Farxiga to start tomorrow
trend tele
Impression / Plan
-
69-year-old gentleman with history of coronary artery disease with triple-vessel disease identified on recent cardiac catheterization on 08/06/2024, with history of thoracic aortic aneurysm, nonsustained ventricular tachycardia, hypertension,
hyperlipidemia and likely ischemic cardiomyopathy with LVEF of 30% showing wall motion abnormalities.
Coronary artery disease - severe 3 vessel disease on cath.
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
- s/p CABG x 3 with CHERRIE clip 08/13/[address] Townsend.
- ASA, Plavix, metoprolol
Ischemic cardiomyopathy with moderate to severely reduced EF 30% - EF 20% on preop DOMINIQUE.
- significant wall motion abnormalities identified. Hopeful will improve with revascularization with CABG.
- continue Toprol XL 12.5mg bid and titrate
- Farxiga to start tomorrow
- assess for entresto and aldactone next
Lung disease - pulmonary following.
- COPD, low DLCO, low FEV1, extrinsic restriction as well from kyphosis/scoliosis.
Thoracic aorta enlargement noted on CT - ascending aorta, short axis diameter 4.1 cm
NSVT - one episode 6 beats at 1726 hrs on 08/09/2024 and a 4 beat episode since.
- tele stable w/o recurrence
- none post op
Echo:CONCLUSIONS
Mildly dilated left ventricle with severely reduced systolic function. Left
ventricular ejection fraction is 25 to 30%. Global hypokinesis. No
intracardiac thrombus.
Right ventricle is normal in size with mildly reduced function.
Mild mitral regurgitation.
Mild tricuspid regurgitation. Estimated PASP 25 mmHg.
Mildly dilated ascending aorta.
No prior study available for comparison.
Physical Exam
Vital Signs/Labs
Vital Signs
Temp Pulse Resp BP Pulse Ox
98.1 F 72 18 110/75 93
08/14/24 08:36 08/14/24 08:36 08/14/24 08:36 08/14/24 08:36 08/14/24 08:36
08/13/24 08/14/24 08/15/24
06:59 06:59 06:59
Actual Weight 68.5 kg 70.7 kg
08/14/24 03:39
08/14/24 03:39
PT 16.8 Sec (11.4-14.6) H 08/13/24 12:52
INR 1.38 08/13/24 12:52
APTT 29.5 Sec (23.4-35.0) 08/13/24 12:52
Magnesium 2.1 mg/dl (1.6-2.3) 08/14/24 03:39
Physical Exam
Constitutional: No acute distress and Comfortable
EENT: Moist mucous membranes
Cardiovascular: Rhythm & rate is regular, Pedal edema is absent, JVD pressure is normal and Systolic murmur absent
Respiratory: Respiratory effort normal and Lungs clear to auscul.
Neuro/Psych: AO x 3
Data Reviewed
-
Date of Service: August 14, 2024
EKG: Other (Tele: NSR 70s)
Labs: Labs Reviewed by me
[2024-08-14 11:14] LABS: Glucose - Point of Care 122 mg/dl (70-99)
[2024-08-14] MEDS: NSS IV (12:18)
[2024-08-14 13:11] LABS: Glucose - Point of Care 94 mg/dl (70-99)
--- NOTE | 2024-08-14 15:31 | W.PN.ANS.POP ---
Anesthesia Post Operative
- Anesthesia Post Op Note
Vital Signs Stable-See Nursing Note: Yes
Airway Patent: Yes
Adequate Pain Control: Yes
Change in Mental Status: No
Current Postoperative Nausea & Vomiting: No
Anesthesia Complications: No
General Anesthetic Recall: No
Unplanned Admission: No
Post Op Hydration Adequate: Yes
[2024-08-14] MEDS: LIPITOR 40 MG PO (18:26)
[2024-08-14] MEDS: TOPROL XL 25 MG PO (19:51)
--- NOTE | 2024-08-14 20:00 | PTCARENOTE ---
Addendum entered by Sandra Billy RN 08/14/24 20:49:
temp epicardial v-wires insulated.
Original Note:
assumed care of pt from previous RN. pt A&Ox4, resting in chair at time of assessment. SR w/ 1st degree AVB on tele-monitor, occasional PVCs. POX 92-94% on RA. L pleural CT to bulb suction, draining sanguineous drainage. abd s/n, +BS. voiding clear,
yellow urine. all surgical sites stable. R IJ cordis w/ KVO. PIV x2 intact. see worklist for complete nursing assessment, interventions, VS, and I&Os.
[2024-08-14] MEDS: CORDARONE 103 MG IV (21:50)
[2024-08-14] MEDS: FLEXERIL 5 MG PO (23:27)
[2024-08-15] VITALS (11 sets, daily range): BP systolic 83–140; BP diastolic 62–95; BMI 25.6
--- NOTE | 2024-08-15 | PTCARENOTE ---
assessment remains unchanged. VSS.
--- NOTE | 2024-08-15 05:00 | PTCARENOTE ---
assessment remains unchanged. VSS. AM labs collected and sent.
[2024-08-15] MEDS: TYLENOL 1000 MG PO ×3 (05:04→20:58)
[2024-08-15] MEDS: ROXICODONE 5 MG PO ×2 (05:04→12:40)
[2024-08-15 05:28] LABS: Hematocrit 37.3 % (39.0-52.0); Hemoglobin 12.8 g/dL (13.0-18.0); Mean Corp Hgb Conc. 34.3 g/dL (33.0-37.0); Mean Corpuscular Hgb 31.7 pg (27.0-31.0); Mean Corpuscular Volume 92.3 fL (80.0-94.0); Mean Platelet Volume 10.2 fL (7.4-10.4); Platelet Count 201 10^3/uL (130-400); Red Blood Cell Count 4.04 10^6/uL (4.70-6.10); Red Cell Dist. Width 14.9 % (11.5-14.5); White Blood Cell Count 14.8 10^3/uL (4.8-10.8)
--- NOTE | 2024-08-15 05:30 | PTCARENOTE ---
pt informed this RN that he had taken '1 or 1.5 mg of oxycodone from his bag' at some point during the night. pt educated regarding the importance of only taking medications provided by the RN during the hospital stay. pt's own medications
confiscated and taken to pharmacy. CV HYDROGEN CELL TENDER- Selam aware. nursing supervisor water softener service- Sirena aware.
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
[2024-08-15 06:15] LABS: Blood Urea Nitrogen 30 mg/dl (9-20); Calcium 9.5 mg/dl (8.4-10.2); Carbon Dioxide 25 mmol/L (22-30); Chloride 96 mmol/L (98-107); Estimated Creatinine Clearance 91 ml/min; Glucose 125 mg/dl (70-99); Sodium 132 mmol/L (135-145); eGFR > 60.00
[2024-08-15] MEDS: DUONEB 3 ML INH ×3 (07:13→20:01)
--- NOTE | 2024-08-15 08:00 | PTCARENOTE ---
See on bedside walking rounds resting in chair. NSR. Room air.
[2024-08-15] MEDS: PACERONE 200 MG PO ×3 (08:09→20:58)
[2024-08-15] MEDS: LIDOCAINE 4% PATCH 1 PATCH TOPICAL (08:09)
[2024-08-15] MEDS: ENTRESTO 24 MG/26 MG 1 TAB PO ×2 (08:10→19:22)
[2024-08-15] MEDS: TOPROL XL 25 MG PO ×2 (08:10→19:22)
[2024-08-15] MEDS: MAGNESIUM OXIDE 500 MG PO ×2 (08:10→19:22)
[2024-08-15] MEDS: PLAVIX 75 MG PO (08:10)
[2024-08-15] MEDS: SENOKOT-S 1 TABLET PO ×2 (08:10→19:22)
[2024-08-15] MEDS: NEURONTIN 100 MG PO ×3 (08:10→20:58)
[2024-08-15] MEDS: FARXIGA 10 MG PO (08:10)
[2024-08-15] MEDS: LASIX 40 MG PO (08:11)
[2024-08-15] MEDS: PROTONIX 40 MG PO (08:11)
[2024-08-15] MEDS: BACTROBAN 2% OINTMENT 1 APPLIC NASAL ×2 (08:11→19:22)
[2024-08-15] MEDS: LOW STRENGTH ASPIRIN 81 MG PO (08:11)
--- NOTE | 2024-08-15 09:14 | W.PN.UPDATE ---
Update Note
Progress Note Update
Overnight, patient was found to have unidentified pills in his possession. He stated to our overnight staff that he was going to take his own oxycodone/Percocets because we were not managing his pain well enough. Those pills were confiscated and
sent down to pharmacy for identification. In the meantime the PDMP was evaluated to see if the patient had prescriptions for narcotics. On the [place] prescription drug monitoring website it was found that he was prescribed
acetaminophen�codeine in January 2024 with 7 tablets. This morning, pharmacy was able to identify the medications as 2 tablets of Tylenol, 2 tablets of ibuprofen, and 2.25 tablets of aspirin. When I spoke with the patient he states that he got those
pills from an unidentified source thinking that they were narcotics. I informed the patient that they were not narcotics and that he should not be taking medications from anyone but healthcare professionals especially in an inpatient setting. He
expressed understanding but was quite disgruntled that they were not narcotics.
--- NOTE | 2024-08-15 12:00 | PTCARENOTE ---
Assisted back to bed. Right IJ cordis dc. Left pleural chest tube dc/sutures removed.
[2024-08-15] MEDS: NSS IV (13:11)
--- NOTE | 2024-08-15 15:49 | PTCARENOTE ---
Ambulated hallway 200 feet: see post activity vitals on room air. Moderately short of breath. Sinus tach during walk.
[2024-08-15] MEDS: LIPITOR 40 MG PO (17:34)
--- NOTE | 2024-08-15 18:32 | W.PN.CD ---
Today's Communication / Plan
-
continue Toprol XL 25mg bid
Farxiga and entresto started today
Impression / Plan
-
69-year-old gentleman with history of coronary artery disease with triple-vessel disease identified on recent cardiac catheterization on 08/06/2024, with history of thoracic aortic aneurysm, nonsustained ventricular tachycardia, hypertension,
hyperlipidemia and likely ischemic cardiomyopathy with LVEF of 30% showing wall motion abnormalities.
Coronary artery disease - severe 3 vessel disease on cath.
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
- s/p CABG x 3 with CHERRIE clip 08/13/[address] Townsend.
- ASA, Plavix, metoprolol
Ischemic cardiomyopathy with moderate to severely reduced EF 30% - EF 20% on preop DOMINIQUE.
- significant wall motion abnormalities identified. Hopeful will improve with revascularization with CABG.
- continue Toprol XL 25mg bid and titrate
- Farxiga and entresto started today
-assess for aldactone prior to d/c
-will need echo in 3 months to assess for ICD
Lung disease - pulmonary following.
- COPD, low DLCO, low FEV1, extrinsic restriction as well from kyphosis/scoliosis.
Thoracic aorta enlargement noted on CT - ascending aorta, short axis diameter 4.1 cm
NSVT - one episode 6 beats at 1726 hrs on 08/09/2024 and a 4 beat episode since.
- tele stable w/o recurrence
- none post op
Echo:CONCLUSIONS
Mildly dilated left ventricle with severely reduced systolic function. Left
ventricular ejection fraction is 25 to 30%. Global hypokinesis. No
intracardiac thrombus.
Right ventricle is normal in size with mildly reduced function.
Mild mitral regurgitation.
Mild tricuspid regurgitation. Estimated PASP 25 mmHg.
Mildly dilated ascending aorta.
No prior study available for comparison.
Physical Exam
Vital Signs/Labs
Vital Signs
Temp Pulse Resp BP Pulse Ox
98.4 F 73 20 113/80 92
08/15/24 15:40 08/15/24 17:00 08/15/24 15:40 08/15/24 15:48 08/15/24 15:40
08/14/24 08/15/24 08/16/24
06:59 06:59 06:59
Actual Weight 70.7 kg 71.9 kg
08/15/24 05:09
08/15/24 05:09
PT 16.8 Sec (11.4-14.6) H 08/13/24 12:52
INR 1.38 08/13/24 12:52
APTT 29.5 Sec (23.4-35.0) 08/13/24 12:52
Magnesium 2.0 mg/dl (1.6-2.3) 08/15/24 05:09
Physical Exam
Constitutional: No acute distress and Comfortable
EENT: Moist mucous membranes
Cardiovascular: Rhythm & rate is regular, Pedal edema is absent, Systolic murmur absent and JVD present
Respiratory: Respiratory effort normal and Lungs clear to auscul.
Neuro/Psych: AO x 3
Data Reviewed
-
Date of Service: August 15, 2024
EKG: Other (Tele: SR 70s)
Labs: Labs Reviewed by me
[2024-08-15] MEDS: TORADOL 15 MG IV (19:18)
--- NOTE | 2024-08-15 20:00 | PTCARENOTE ---
assumed care of pt from previous RN. pt A&Ox4, sitting on side of bed during assessment. SR w/ 1st degree AVB, RBBB on tele-monitor. temp epicardial V-wires insulated. POX 94% on RA. abd s/n, +BS. voiding clear, yellow urine. all surgical sites
stable. PIV x2 intact. pt and spouse voiced concerns regarding discharge. emotional support provided, all questions answered. see worklist for complete nursing assessment, interventions, VS, and I&Os.
[2024-08-15] MEDS: FLEXERIL 5 MG PO (20:58)
[2024-08-15] MEDS: MELATONIN 5 MG PO (20:58)
--- NOTE | 2024-08-15 23:30 | PTCARENOTE ---
assessment remains unchanged. VSS.
[2024-08-16] VITALS (53 sets, daily range): BP systolic 66–146; BP diastolic 48–89; BMI 25.3
--- NOTE | 2024-08-16 02:30 | PTCARENOTE ---
assessment remains unchanged. VSS. AM labs collected and sent.
[2024-08-16 02:59] LABS: Hematocrit 36.1 % (39.0-52.0); Hemoglobin 12.8 g/dL (13.0-18.0); Mean Corp Hgb Conc. 35.5 g/dL (33.0-37.0); Mean Platelet Volume 10.4 fL (7.4-10.4); Platelet Count 192 10^3/uL (130-400); Red Blood Cell Count 3.88 10^6/uL (4.70-6.10); Red Cell Dist. Width 14.6 % (11.5-14.5); White Blood Cell Count 10.9 10^3/uL (4.8-10.8)
[2024-08-16 03:15] LABS: Blood Urea Nitrogen 36 mg/dl (9-20); Calcium 9.5 mg/dl (8.4-10.2); Carbon Dioxide 28 mmol/L (22-30); Chloride 96 mmol/L (98-107); Estimated Creatinine Clearance 80 ml/min; Glucose 122 mg/dl (70-99); Magnesium 2.3 mg/dl (1.6-2.3); Potassium 4.2 mmol/L (3.5-5.1); Sodium 133 mmol/L (135-145); eGFR > 60.00
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
[2024-08-16] MEDS: TYLENOL 1000 MG PO ×2 (06:11→23:07)
[2024-08-16] MEDS: FLEXERIL 5 MG PO ×2 (06:11→17:12)
--- NOTE | 2024-08-16 07:00 | PTCARENOTE ---
[address] walking rounds report received. Patient seen on rounds oob in chair: 2l nasal canula: dypneic at rest and more us of accesory muscles noted: patiient stated: 'I don'rt feel good and I feel like I can't breathe and I'm not hungry'
Patient is noted to be in new onset a fibb: slow to controlled: amio bolus and gtt ordered: pt is hypotensive and CT surgery is aware of these acute changes: amio blous and gtt ordered. 2l nasal canula: pulse ox sats were 96%. Temp V wire
reconnected to [employer] box and off for backup if needed. Stat echo ordered. Patient is an assist of 2 today to bet back to bed. New #20ga iv established left forearm for amio gtt bolus plus gtt per cvicu policy. See flowrecord for remaining
assessments.
[2024-08-16] MEDS: CORDARONE 103 MG IV (07:51)
[2024-08-16] MEDS: MAGNESIUM SULFATE 102 GRAMS IV (07:51)
[2024-08-16] MEDS: CORDARONE 518 MG IV (07:54)
[2024-08-16] MEDS: DUONEB 3 ML INH ×3 (08:04→19:05)
[2024-08-16] MEDS: TORADOL 15 MG IV (08:16)
[2024-08-16] MEDS: PROTONIX 40 MG PO (08:17)
[2024-08-16] MEDS: PLAVIX 75 MG PO (08:17)
[2024-08-16] MEDS: MUCINEX 1200 MG PO ×2 (08:18→21:29)
[2024-08-16] MEDS: NEURONTIN 100 MG PO ×3 (08:18→23:07)
[2024-08-16] MEDS: PACERONE 200 MG PO ×3 (08:18→23:07)
[2024-08-16] MEDS: MAGNESIUM OXIDE 500 MG PO ×2 (08:18→21:29)
[2024-08-16] MEDS: LASIX 20 MG PO (08:18)
[2024-08-16] MEDS: FARXIGA 10 MG PO (08:18)
[2024-08-16] MEDS: LOW STRENGTH ASPIRIN 81 MG PO (08:19)
[2024-08-16] MEDS: LIDOCAINE 4% PATCH 1 PATCH TOPICAL (08:19)
[2024-08-16] MEDS: SENOKOT-S 1 TABLET PO ×2 (08:19→21:29)
[2024-08-16] MEDS: BACTROBAN 2% OINTMENT 1 APPLIC NASAL ×2 (08:20→21:28)
--- NOTE | 2024-08-16 08:25 | W.PN.CD ---
Today's Communication / Plan
-
Hold entresto/metoprolol.
BP support.
EKG this morning.
Limited echo to evaluate wall motion, pericardium.
Hypotension seems related to AF. If he does not spontaneously convert and BP remains soft, would favor DCCV later today.
NPO until this decision has been made.
Impression / Plan
-
Impression/Plan: 69-year-old gentleman with history of coronary artery disease with triple-vessel disease identified on recent cardiac catheterization on 08/06/2024, with history of thoracic aortic aneurysm, nonsustained ventricular tachycardia,
hypertension, hyperlipidemia and likely ischemic cardiomyopathy with LVEF of 30% showing wall motion abnormalities, transferred from [facility] for CABG.
#Coronary artery disease
-Acute on chronic.
-S/P 3V CABG (PAREDES to LAD, sequential SVG to OM to PDA) with Dr. Townsend, 08/13/2024.
-S/P LAAE (#40 Atriclip).
-Chest tube/pain management per CT surgery.
-Encourage ambulation, incentive spirometry.
-Continue ASA, clopidogrel, metoprolol, amiodarone, atorvastatin.
#Ischemic cardiomyopathy
-New diagnosis.
-Moderate to severely reduced LVEF (30%).
-Significant wall motion abnormalities identified. Hopeful will improve with revascularization with CABG.
-GDMT:
-Diuretics = Furosemide (variable dosing).
-Beta sheila = metoprolol succinate 25 mg daily.
-ACEI/ARB/ARNi = Sacubitril/valsartan 24/26 mg BID.
-SGLT2i = dapagliflozin 10 mg daily.
-MRA = Not yet started on spironolactone or eplerenone.
-Hold metoprolol and sacubitril/valsartan this morning given hypotension.
#Mixed lung disease
-Chronic.
-Pulmonary following.
-COPD, low DLCO, low FEV1, extrinsic restriction as well from kyphosis/scoliosis.
#Thoracic aorta enlargement
-Chronic.
-Noted on CT - ascending aorta, short axis diameter 4.1 cm.
-Beta sheila and ACEI indicated.
#NSVT
-Acute.
-One 6 beat episode at 1726 hrs on 08/09/2024 and one 4 beat episode since.
-Continue beta sheila/amiodarone.
Subjective/Interval History:
Lapsed into atrial fibrillation this morning.
Hypotensive this morning (67-88 mmHg systolic).
Weight down 0.7 kg.
SaO2 = 97% on 2LNC.
Hbg stable.
DATA:
Echo, 08/11/2024:
CONCLUSIONS
Mildly dilated left ventricle with severely reduced systolic function. Left
ventricular ejection fraction is 25 to 30%. Global hypokinesis. No
intracardiac thrombus.
Right ventricle is normal in size with mildly reduced function.
Mild mitral regurgitation.
Mild tricuspid regurgitation. Estimated PASP 25 mmHg.
Mildly dilated ascending aorta.
No prior study available for comparison.
Physical Exam
Vital Signs/Labs
Vital Signs
Temp Pulse Resp BP Pulse Ox
36.6 C 61 16 83/61 97
08/16/24 08:00 08/16/24 08:15 08/16/24 08:09 08/16/24 08:00 08/16/24 08:09
08/14/24 08/15/24 08/16/24
11:59 11:59 11:59
Actual Weight 70.7 kg 71.9 kg 71.2 kg
08/16/24 02:23
08/16/24 02:23
PT 16.8 Sec (11.4-14.6) H 08/13/24 12:52
INR 1.38 08/13/24 12:52
APTT 29.5 Sec (23.4-35.0) 08/13/24 12:52
Magnesium 2.3 mg/dl (1.6-2.3) 08/16/24 02:23
Physical Exam
Constitutional: No acute distress and Comfortable
EENT: Anicteric and Moist mucous membranes
Cardiovascular: JVD pressure is normal, Rhythm/rate is irregular, Pedal edema present, S1S2 is normal and Murmur/rub/gallop absent
Respiratory: Respiratory effort normal and Other (Decreased throughout.)
GI: Soft, Distention absent, Flat, Non tender and Normal bowel sounds
Neuro/Psych: AO x 3
Data Reviewed
-
Date of Service: August 16, 2024
Medical Decision Making: Reviewed Test Results, Independent Historian Assessment and Test Interpretation
EKG: Tracing Personally Visualized and interpreted and Report Reviewed by me
Echo: Report Reviewed by me
X-Ray/CT/US/MRI/NUC/PET: Image Personally Visualized and interpreted and Report Reviewed by me
Medical Tests (PFT, Pathology etc): Report Reviewed by me
Labs: Labs Reviewed by me
Old Records: Reviewed
[2024-08-16] MEDS: LR 250 ML IV (08:30)
--- NOTE | 2024-08-16 09:00 | PTCARENOTE ---
Patient remains hypotensive. Will start levophed gtt and titrate for MAP > 65. V paced 1:1 at 90bpm
[2024-08-16] MEDS: TOPROL XL PO (10:11)
--- NOTE | 2024-08-16 10:26 | W.PN.UPDATE ---
Update Note
Progress Note Update
Patient converted into atrial fibrillation this morning. He was treated with Amio bolus and Amio infusion per protocol. However patient became hypotensive with systolic pressures into the 60s. He was given a 250 mL lactated ringer bolus, started
on low-dose Levophed infusion, and ventricular pacing was initiated with rates in 90s. Blood pressures improved to 97/75 with maps 80. Repeat echocardiogram performed. Currently patient is NPO in case DCCV is needed.
--- NOTE | 2024-08-16 12:00 | PTCARENOTE ---
Dr. Townsend rounding and updated with this AM's acute changes. Patient does seem groggy and pupils were somewhat pinpoint: narcan 0.2mg given per Dr. Townsend at the bedside: patient then slightly agitated and fidgity, otherwise neuro is
baseline. Remains v paced 1:1 at 90bpm
[2024-08-16] MEDS: NARCAN 0.4 MG IV (12:47)
[2024-08-16] MEDS: NSS IV (12:47)
[2024-08-16] MEDS: TYLENOL 650 MG PO ×2 (12:48→17:12)
[2024-08-16] MEDS: TYLENOL PO (15:14)
--- NOTE | 2024-08-16 16:00 | PTCARENOTE ---
No acute changes. OK to eat. Assited oob to chair with assist of 1. Levo gtt titrated off.
[2024-08-16] MEDS: LR 500 IV (16:06)
[2024-08-16] MEDS: LIPITOR 40 MG PO (17:12)
[2024-08-16] MEDS: ProAmatine 10 MG PO (18:34)
--- NOTE | 2024-08-16 22:10 | PTCARENOTE ---
Report from Spencer SMITH. Walking rounds done. Pt in chair. Pt assessed VS done. Pt helped back to bed with 2 RNs. Awake, alert, oriented x 4. Hx TBI. Pt neuro status at baseline. Garbled speech at times. Pt on room air. Sats 96-98. Audible heart tones.
V paced at 90. Goal MAP > 65 while on Levo gtt.
Ed, PA at bedside to to check intrinsic rhythm. Pt in AF 60-70's. BP 90's systolic. MAP 70's. Ca gluconate 2 gm IV ordered and given. Levo gtt off at 2200. LR IVF off at 2205. For pulse and wound assessments, see flowsheets. Pt given CHG bath.
Dressing change done to former CT sites/V wire site.
Belly soft, nontender. Normoactive bs x 4. Urine clear, yellow, Voids in urinal when standing.
Amio gtt at 0.5 mg/min. Continual assessment of IV site whie amio infusing. Bed alarm on. Ongoing plan of care. NPO P MN for possible DCCV in am. Pt and significant other aware.
[2024-08-16] MEDS: LR IV (23:06)
[2024-08-16] MEDS: MELATONIN 5 MG PO (23:07)
[2024-08-16] MEDS: CALCIUM GLUCONATE 100 IV (23:08)
[2024-08-17] VITALS (22 sets, daily range): BP systolic 91–123; BP diastolic 66–91; PULSE 61–73; O2SAT 96; BMI 26.0
--- NOTE | 2024-08-17 02:10 | PTCARENOTE ---
BP at goal while levo gtt off, after CaGluconate infused. Q1hr BP monitored. Pt sleeping intermittently. Remains in AF, rate 60-70's. Sats 98% on 2L/NC. Arouses easily to voice.
[2024-08-17] MEDS: ROXICODONE 2.5 MG PO ×2 (04:32→17:34)
[2024-08-17 05:05] LABS: Hemoglobin 11.6 g/dL (13.0-18.0); Mean Corp Hgb Conc. 35.2 g/dL (33.0-37.0); Mean Corpuscular Volume 90.9 fL (80.0-94.0); Mean Platelet Volume 9.7 fL (7.4-10.4); Platelet Count 228 10^3/uL (130-400); Red Blood Cell Count 3.63 10^6/uL (4.70-6.10); White Blood Cell Count 8.5 10^3/uL (4.8-10.8)
--- NOTE | 2024-08-17 05:05 | PTCARENOTE ---
Labs drawn and sent. Roxicodone 2.5 mg po for c/o chronic lower back pain 06/19. Pt attempting to go back to sleep. bP 94/79. Denies dizziness, lightheadedness.
[2024-08-17 05:24] LABS: Blood Urea Nitrogen 26 mg/dl (9-20); Calcium 8.9 mg/dl (8.4-10.2); Carbon Dioxide 27 mmol/L (22-30); Chloride 98 mmol/L (98-107); Estimated Creatinine Clearance 91 ml/min; Glucose 109 mg/dl (70-99); Potassium 4.5 mmol/L (3.5-5.1); Sodium 133 mmol/L (135-145); eGFR > 60.00
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
[2024-08-17] MEDS: TYLENOL 1000 MG PO ×3 (07:27→21:54)
--- NOTE | 2024-08-17 07:33 | PTCARENOTE ---
Pt helped up to standing to void clear, yellow urine. Weighed on standing scale. Then Helped to recliner chair. Chair alarm in recliner chair. Report to SARAH Thrasher. Walking rounds done.
[2024-08-17] MEDS: DUONEB 3 ML INH ×2 (07:34→13:28)
[2024-08-17] MEDS: CORDARONE 518 MG IV (07:58)
[2024-08-17] MEDS: BACTROBAN 2% OINTMENT 1 APPLIC NASAL (07:59)
[2024-08-17] MEDS: CORDARONE 103 MG IV ×2 (08:00→14:58)
--- NOTE | 2024-08-17 08:00 | PTCARENOTE ---
Resumed care of patient from previous RN. Walking rounds done. resting in bed at time of assessment. assist x1 oob to stand to urinate. AAOx3. Garbled speech (baseline). 96-98% RA. Temp pacing wire present but no pacing noted. VSS off levo gtt. Amio
infusing at ordered rate. Remains AFIB.
Abd soft, nontender. Voids in urinal. Will continue to monitor.
[2024-08-17] MEDS: LIDOCAINE 4% PATCH 1 PATCH TOPICAL (08:03)
[2024-08-17] MEDS: SENOKOT-S 1 TABLET PO ×2 (08:28→20:06)
[2024-08-17] MEDS: FARXIGA 10 MG PO (08:28)
[2024-08-17] MEDS: PLAVIX 75 MG PO (08:28)
[2024-08-17] MEDS: PROTONIX 40 MG PO (08:28)
[2024-08-17] MEDS: MAGNESIUM OXIDE 500 MG PO ×2 (08:28→20:07)
[2024-08-17] MEDS: LOW STRENGTH ASPIRIN 81 MG PO (08:28)
[2024-08-17] MEDS: NEURONTIN 100 MG PO ×3 (08:28→21:54)
[2024-08-17] MEDS: MUCINEX 1200 MG PO ×2 (08:29→20:07)
[2024-08-17] MEDS: PACERONE 200 MG PO ×2 (08:29→16:10)
[2024-08-17] MEDS: NSS IV (08:30)
--- NOTE | 2024-08-17 09:46 | W.PN.CD ---
Today's Communication / Plan
-
afib - rate controlled
continue amiodarone
would change from ASA and Plavix to ASA and Elqiusi.
Impression / Plan
-
Impression/Plan: 69-year-old gentleman with history of coronary artery disease with triple-vessel disease identified on recent cardiac catheterization on 08/06/2024, with history of thoracic aortic aneurysm, nonsustained ventricular tachycardia,
hypertension, hyperlipidemia and likely ischemic cardiomyopathy with LVEF of 30% showing wall motion abnormalities, transferred from [facility] for CABG.
#Coronary artery disease
-Acute on chronic.
-S/P 3V CABG (PAREDES to LAD, sequential SVG to OM to PDA) with Dr. Townsend, 08/13/2024.
-S/P LAAE (#40 Atriclip).
-Chest tube/pain management per CT surgery.
-Continue ASA, clopidogrel, , amiodarone, atorvastatin.
- metoprolol as BP and HR tolerate
#Ischemic cardiomyopathy
-New diagnosis.
-Moderate to severely reduced LVEF (30%).
-Significant wall motion abnormalities identified. Hopeful will improve with revascularization with CABG.
-GDMT: - post op limited by BP. holding diuretic, BB and entresto
# afib - new post op
- continue amiodarone
- would change to Eliquis and ASA
#Mixed lung disease
-Chronic.
-Pulmonary following.
-COPD, low DLCO, low FEV1, extrinsic restriction as well from kyphosis/scoliosis.
#Thoracic aorta enlargement
-Chronic.
-Noted on CT - ascending aorta, short axis diameter 4.1 cm.
-Beta sheila and ACEI indicated.
#NSVT
-Acute.
-One 6 beat episode at 1726 hrs on 08/09/2024 and one 4 beat episode since.
-Continue beta sheila/amiodarone.
Subjective/Interval History:
Lapsed into atrial fibrillation this morning.
Hypotensive this morning (67-88 mmHg systolic).
Weight down 0.7 kg.
SaO2 = 97% on 2LNC.
Hbg stable.
DATA:
Echo, 08/11/2024:
CONCLUSIONS
Mildly dilated left ventricle with severely reduced systolic function. Left
ventricular ejection fraction is 25 to 30%. Global hypokinesis. No
intracardiac thrombus.
Right ventricle is normal in size with mildly reduced function.
Mild mitral regurgitation.
Mild tricuspid regurgitation. Estimated PASP 25 mmHg.
Mildly dilated ascending aorta.
No prior study available for comparison.
Physical Exam
Vital Signs/Labs
Vital Signs
Temp Pulse Resp BP Pulse Ox
98.8 F 65 20 99/71 98
08/17/24 08:00 08/17/24 08:29 08/17/24 08:00 08/17/24 08:29 08/17/24 08:00
08/16/24 08/17/24 08/18/24
06:59 06:59 06:59
Actual Weight 71.2 kg 72.9 kg
08/17/24 04:51
08/17/24 04:51
PT 16.8 Sec (11.4-14.6) H 08/13/24 12:52
INR 1.38 08/13/24 12:52
APTT 29.5 Sec (23.4-35.0) 08/13/24 12:52
Magnesium 2.0 mg/dl (1.6-2.3) 08/17/24 04:51
Physical Exam
Constitutional: No acute distress
Cardiovascular: Rhythm & rate is regular
Respiratory: Respiratory effort normal
GI: Soft
Neuro/Psych: Alert
Data Reviewed
-
Date of Service: August 17, 2024
Medical Decision Making: Reviewed Test Results
Medical Tests (PFT, Pathology etc): Report Reviewed by me
Labs: Labs Reviewed by me
[2024-08-17] MEDS: MAGNESIUM SULFATE 50 IV (13:15)
--- NOTE | 2024-08-17 13:25 | CM ---
priced farxiga and entresto- both copays are $25/month
[2024-08-17] MEDS: MILK OF MAGNESIA 30 ML PO (16:10)
[2024-08-17] MEDS: LIPITOR 40 MG PO (17:34)
[2024-08-17] MEDS: DUONEB INH (19:29)
--- NOTE | 2024-08-17 21:00 | PTCARENOTE ---
Assumed care of pt from dayshift RN. Walking rounds completed. Pt AAOx3. Garbled speech. Pt w/ hx of TBI and garbled speech. Pt A-fib on the monitor. HR 60-70s. Temporary epicardial V-wire intact and set to VVI 45/5/2. No pacer spikes noted. BP
stable. Palpable pulses throughout. Trace LE edema. Pt on RA. POX 97%. Deep breathing and IS encouraged. Occasional cough. Lung sounds diminished at the base. CT dressing CDI. Abdomen soft. +BS. Pt c/o feeling constipated. Pt assisted to the
bathroom - no BM at this time. Pt voiding w/o issue. All surgical sites stable. PIVx1 CDI. See worklist for full nursing assessment and interventions. Call [facility] within reach.
[2024-08-17] MEDS: PACERONE 400 MG PO (21:54)
[2024-08-17] MEDS: MELATONIN 5 MG PO (21:54)
[2024-08-18] VITALS (15 sets, daily range): BP systolic 98–137; BP diastolic 69–103; PULSE 85–100; O2SAT 92; BMI 26.1
--- NOTE | 2024-08-18 00:14 | PTCARENOTE ---
Pt reassessed. Pt remains in a-fib on the tele monitor. HR 60-70s. Temporary epicardial V-wire intact. Settings unchanged. BP 98/69. MAP 79. Pt on RA. POX 94%. Pt slightly dyspneic w/ exertion when OOB to use the bathroom. All surgical sites stable.
Call [facility] within reach.
[2024-08-18] MEDS: FLEXERIL 5 MG PO ×2 (00:58→12:06)
--- NOTE | 2024-08-18 02:58 | PTCARENOTE ---
No acute changes in assessment. Pt in a-fib on the tele monitor. HR 70s. Temporary epicardial V-wire intact. Setting unchanged. BP 119/88. MAP 99. Pt on RA. POX 96%. All surgical sites stable. Pt assisted OOB to void and attempt to have a BM. Pt
voided but unable to have BM at this time. Pt repositioned back into bed. Labs drawn and sent. Call [facility] within reach.
[2024-08-18 03:26] LABS: Blood Urea Nitrogen 19 mg/dl (9-20); Carbon Dioxide 26 mmol/L (22-30); Chloride 99 mmol/L (98-107); Estimated Creatinine Clearance 91 ml/min; Glucose 108 mg/dl (70-99); Magnesium 2.3 mg/dl (1.6-2.3); Potassium 4.5 mmol/L (3.5-5.1); Sodium 136 mmol/L (135-145); eGFR > 60.00
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
[2024-08-18] MEDS: TYLENOL 1000 MG PO ×3 (06:07→22:57)
--- NOTE | 2024-08-18 07:00 | PTCARENOTE ---
Bedside walking rounds report received. OOB in chair. Awake and alert. Focused on having a 'BM because he feels bloated'. Bowel regimen successful for large BM today. A fibb on monitor controlled. V wire for back up. See flowrecord for settings.
Room air. Plan: per cardiology and CT surgery: make patient NPO after MN for synchronized cardioversion tomorrow. Per Dr. Yañez, patient will need life vest training prior to discharge tomorrow. See flowrecord for remaining assessments.
[2024-08-18] MEDS: DUONEB 3 ML INH ×2 (07:30→13:03)
[2024-08-18] MEDS: LOW STRENGTH ASPIRIN 81 MG PO (07:49)
[2024-08-18] MEDS: PLAVIX 75 MG PO (07:49)
[2024-08-18] MEDS: PROTONIX 40 MG PO (07:50)
[2024-08-18] MEDS: LIDOCAINE 4% PATCH 1 PATCH TOPICAL (07:50)
[2024-08-18] MEDS: FARXIGA 10 MG PO (07:50)
[2024-08-18] MEDS: NEURONTIN 100 MG PO ×3 (07:50→22:56)
[2024-08-18] MEDS: PACERONE 200 MG PO ×3 (07:51→22:57)
[2024-08-18] MEDS: MUCINEX 1200 MG PO ×2 (07:51→22:54)
[2024-08-18] MEDS: SENOKOT-S 1 TABLET PO ×2 (07:51→22:55)
[2024-08-18] MEDS: MILK OF MAGNESIA 30 ML PO (07:52)
[2024-08-18] MEDS: MAGNESIUM OXIDE 500 MG PO ×2 (07:52→22:54)
[2024-08-18] MEDS: NSS IV (07:53)
--- NOTE | 2024-08-18 08:35 | W.PN.CD ---
Today's Communication / Plan
-
Anticoagulate.
D/C clopidogrel.
DCCV tomorrow given fall in LVEF, inability to tolerate GDMT. NPO after MN.
Close monitoring for off label narcotic use.
Impression / Plan
-
Impression/Plan: 69-year-old gentleman with history of coronary artery disease with triple-vessel disease identified on recent cardiac catheterization on 08/06/2024, with history of thoracic aortic aneurysm, nonsustained ventricular tachycardia,
hypertension, hyperlipidemia and likely ischemic cardiomyopathy with LVEF of 30% showing wall motion abnormalities, transferred from [facility] for CABG.
#Coronary artery disease
-Acute on chronic.
-S/P 3V CABG (PAREDES to LAD, sequential SVG to OM to PDA) with Dr. Townsend, 08/13/2024.
-S/P LAAE (#40 Atriclip).
-Chest tube/pain management per CT surgery.
-Continue ASA, clopidogrel, amiodarone, atorvastatin.
-Add metoprolol as hemodynamics will allow.
#Ischemic cardiomyopathy
-New diagnosis.
-Moderate to severely reduced LVEF (30%).
-Significant wall motion abnormalities identified. Hopeful will improve with revascularization with CABG.
-GDMT currently limited by BP. Beta sheila started. Tolerating dapagliflozin. Not ready for ARNi.
-Repeat echocardiogram in 90 days to assess for myocardial recovery and need for primary prevention ICD.
#Afib
-New post op with associated hypotension, requiring pressors. Pressors now weaned.
-Rate controlled with amiodarone.
-CHADS2-Vasc = 3 (CHF, Age x1, Vascular Disease).
-The patient should now be anticoagulated as we are approaching 48 hours of AF. Our window for DCCV is closing without DOMINIQUE guidance
-Therapeutic anticoagulation wtih apixaban.
-Given new AF, fall in EF and inability to uptitrate GDMT, plan for DCCV tomorrow. NPO after MN.
#Mixed lung disease
-Chronic.
-Pulmonary following.
-COPD, low DLCO, low FEV1, extrinsic restriction as well from kyphosis/scoliosis.
#Thoracic aorta enlargement
-Chronic.
-Noted on CT - ascending aorta, short axis diameter 4.1 cm.
-Beta sheila and ACEI indicated.
#NSVT
-Acute.
-One 6 beat episode at 1726 hrs on 08/09/2024 and one 4 beat episode since.
-Continue beta sheila/amiodarone.
-CTS is planning to discharge with a LifeVest. This seems reasonable.
Subjective/Interval History:
Weight increased 0.4 kg yesterday, up 4.5 kg from baseline (68.8 kg --> 73.3 kg).
SaO2 99% on RA.
Patient was reportedly taking narcotics that were not authorized by pharmacy, requiring narcan.
Remains if AF.
Apixaban started.
DATA:
Echo, 08/11/2024:
CONCLUSIONS
Mildly dilated left ventricle with severely reduced systolic function. Left
ventricular ejection fraction is 25 to 30%. Global hypokinesis. No
intracardiac thrombus.
Right ventricle is normal in size with mildly reduced function.
Mild mitral regurgitation.
Mild tricuspid regurgitation. Estimated PASP 25 mmHg.
Mildly dilated ascending aorta.
No prior study available for comparison.
TTE, 08/16/2024:
CONCLUSIONS
Severely reduced left ventricular systolic function. Global hypokinesis. LV
ejection fraction is 20-25%.
RV mildly dilated with mildly reduced function.
Compared to prior study on 08/11/24, biventricular function is slightly worse.
Physical Exam
Vital Signs/Labs
Vital Signs
Temp Pulse Resp BP Pulse Ox
36.4 C 73 20 125/93 99
08/18/24 07:38 08/18/24 07:38 08/18/24 07:38 08/18/24 07:38 08/18/24 07:38
08/16/24 08/17/24 08/18/24
11:59 11:59 11:59
Actual Weight 71.2 kg 72.9 kg 73.3 kg
08/17/24 04:51
08/18/24 02:50
PT 16.8 Sec (11.4-14.6) H 08/13/24 12:52
INR 1.38 08/13/24 12:52
APTT 29.5 Sec (23.4-35.0) 08/13/24 12:52
Magnesium 2.3 mg/dl (1.6-2.3) 08/18/24 02:50
Physical Exam
Constitutional: No acute distress and Comfortable
EENT: Anicteric and Moist mucous membranes
Cardiovascular: Pedal edema is absent, JVD pressure is normal, Rhythm/rate is irregular, S1S2 is normal and Murmur/rub/gallop absent
Respiratory: Respiratory effort normal, Lungs clear to auscul., Wheeze Absent, Crackles Absent and Rhonchi Absent
GI: Soft, Distention absent, Flat, Non tender and Normal bowel sounds
Neuro/Psych: AO x 3
Data Reviewed
-
Date of Service: August 18, 2024
Medical Decision Making: Reviewed Test Results, Independent Historian Assessment, Test Interpretation and Review of Case with other Provider
EKG: Tracing Personally Visualized and interpreted and Report Reviewed by me
Echo: Tracing Personally Visualized and interpreted and Report Reviewed by me
X-Ray/CT/US/MRI/NUC/PET: Image Personally Visualized and interpreted and Report Reviewed by me
Medical Tests (PFT, Pathology etc): Image Personally Visualized and interpreted and Report Reviewed by me
Labs: Labs Reviewed by me
Old Records: Reviewed
[2024-08-18] MEDS: DULCOLAX 10 MG PO (09:19)
[2024-08-18] MEDS: ELIQUIS 5 MG PO ×2 (09:21→22:54)
--- NOTE | 2024-08-18 11:04 | CM ---
Priced Deysiis thru insurance, [facility] thru [place], - estimated copay for x1 month is $25/ mo or $25/90 d mail order.
Will place free 30 d supply in DC section of chart.
--- NOTE | 2024-08-18 12:00 | PTCARENOTE ---
Large soft loose BM noted. Patiet feel much better. Remains in controlled a fibb.
--- NOTE | 2024-08-18 15:20 | CM ---
CM following for DC planning needs.
Attempted to meet w/ patient at bedside. Pt. was sleeping soundly.
Did receive call from spouse, Vero. We reviewed DC plan and needs. Pt. set up with VN thru [facility]. [facility].
Spouse requested assist w/ FMLA paperwork. Printed out as requested and will provide assistance as needed.
Will cont. to follow and assist w/ DC planning needs.
--- NOTE | 2024-08-18 15:42 | PTCARENOTE ---
Ambulated 225 feet on room air without difficulty. See post activity vitals. remains in controlled afibb. Plan NPO after MN tonight for cardioversion in AM tomorrow.
--- NOTE | 2024-08-18 16:00 | PTCARENOTE ---
No acute changes. Vitals stable. OOB in flor. Ambulating better with assist of rolling walker. Epicardial v wire insulated.
[2024-08-18] MEDS: LIPITOR 40 MG PO (17:40)
[2024-08-18] MEDS: ROXICODONE 2.5 MG PO (20:56)
--- NOTE | 2024-08-18 21:00 | PTCARENOTE ---
Report from SARAH Palmer. Walking rounds done. VS done. Pt assessed. Pt is awake, alert, oriented x 4. Hx of garbled/slurred speech at times (hx TBI). Oriented x 4. Moves extremities equally. Pt on room air. Sats 95-96%. BBS present, decreased to B
bases. CDB and IS encouraged. IS peak 750 mls. Pt in AF. V wire present. Insulated to chest. Audible heart tones. For pulse and wound assessments, see flowsheets. Belly soft, nontender. Normoactive bs x 4. Pt voids clear, yellow urine in urinal.
Roxicodone 2.5 mg given for c/o pain- See MAR. at bedside. Ongoing plan of care.
[2024-08-18] MEDS: TOPROL XL 12.5 MG PO (22:55)
[2024-08-18] MEDS: MELATONIN 5 MG PO (22:56)
--- NOTE | 2024-08-18 23:15 | PTCARENOTE ---
Pt given CHG bath. Gown and linens changed. Dressing changed to pacing wire site/former CT sites. Redressed per protocol. Blood glucose 136 at bedtime.Pt attempting to go to sleep for evening. Ongoing plan of care.
[2024-08-18 23:22] LABS: Glucose - Point of Care 136 mg/dl (70-99)
[2024-08-19] VITALS (9 sets, daily range): BP systolic 108–128; BP diastolic 73–94; PULSE 83–84; O2SAT 97; BMI 25.6
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
--- NOTE | 2024-08-19 02:50 | PTCARENOTE ---
VS done. See flowsheet. Pt voided 200 mls of clear, yellow urine in urinal. Pt attempting to go back to sleep.
[2024-08-19 06:19] LABS: Hematocrit 33.3 % (39.0-52.0); Hemoglobin 11.3 g/dL (13.0-18.0); Mean Corp Hgb Conc. 33.9 g/dL (33.0-37.0); Mean Corpuscular Hgb 32.1 pg (27.0-31.0); Mean Corpuscular Volume 94.6 fL (80.0-94.0); Mean Platelet Volume 9.2 fL (7.4-10.4); Platelet Count 276 10^3/uL (130-400); Red Blood Cell Count 3.52 10^6/uL (4.70-6.10); White Blood Cell Count 7.9 10^3/uL (4.8-10.8)
[2024-08-19] MEDS: TYLENOL 1000 MG PO ×2 (06:23→15:36)
--- NOTE | 2024-08-19 06:25 | PTCARENOTE ---
Labs drawn and sent. VS done. Pt helped to standing scale, weighed. Then helped to recliner chair. Pt tolerated transfer. Tylenol 650 mg given as scheduled.
[2024-08-19 06:52] LABS: Blood Urea Nitrogen 14 mg/dl (9-20); Calcium 8.9 mg/dl (8.4-10.2); Carbon Dioxide 27 mmol/L (22-30); Chloride 99 mmol/L (98-107); Estimated Creatinine Clearance 80 ml/min; Glucose 97 mg/dl (70-99); Potassium 4.9 mmol/L (3.5-5.1); Sodium 137 mmol/L (135-145); eGFR > 60.00
--- NOTE | 2024-08-19 07:56 | W.PN.CD ---
Addendum entered and electronically signed by Josef Yañez DO 08/19/24 14:57:
The patient has severe, ischemic cardiomyopathy and has had documented ventricular tachycardia during this admission.
He is high risk for sudden cardiac and would benefit from a LifeVest external defibrillator until repeat echocardiography can determine need for implantable ICD.
Original Note:
Today's Communication / Plan
-
12 lead EKG now.
Start lisinopril 2.5 mg daily. BMP in one week.
If he remains in NSR, ok to d/c NPO order and allow to eat lunch.
Agree with furosemide 20 mg IV this morning.
Please start furosemide 40 mg PO daily to be continued as home diuretic.
Discharge planning. If he is going to be discharged today, I would prefer he be a late afternoon discharge so that we can continue to monitor his heart rhythm.
Follow up with Michael posadas (2 weeks).
Impression / Plan
-
Impression/Plan: 69-year-old gentleman with history of coronary artery disease with triple-vessel disease identified on recent cardiac catheterization on 08/06/2024, with history of thoracic aortic aneurysm, nonsustained ventricular tachycardia,
hypertension, hyperlipidemia and likely ischemic cardiomyopathy with LVEF of 30% showing wall motion abnormalities, transferred from [facility] for CABG.
#Coronary artery disease
-Acute on chronic.
-S/P 3V CABG (PAREDES to LAD, sequential SVG to OM to PDA) with Dr. Townsend, 08/13/2024.
-S/P LAAE (#40 Atriclip).
-Chest tube/pain management per CT surgery.
-Continue ASA, clopidogrel, amiodarone, atorvastatin.
-Currently tolerating metoprolol succinate 12.5 mg daily.
#Ischemic cardiomyopathy/HFrEF
-New diagnosis.
-Moderate to severely reduced LVEF (30%, worsened post op when he went into AF (20-25%).
-Significant wall motion abnormalities identified. Hopeful will improve with revascularization with CABG.
-GDMT currently limited by BP. Tolerating metoprolol 12.5 mg daily and dapagliflozin. Not ready for ARNi.
-Start lisinopril 2.5 mg daily in light of hypotension with ARNi. BMP in one week.
-Repeat echocardiogram in 90 days to assess for myocardial recovery and need for primary prevention ICD.
-Agree with furosemide 20 mg IV this morning. He should go home on furosemide 40 mg PO daily.
#Afib
-Converted to NSR.
-Rate/rhythm control with amiodarone.
-CHADS2-Vasc = 3 (CHF, Age x1, Vascular Disease).
-Therapeutic anticoagulation with apixaban.
-12 lead EKG.
-Monitor this morning to make sure that NSR is sustained. If he remains in NSR, he may eat lunch.
#Mixed lung disease
-Chronic.
-Pulmonary following.
-COPD, low DLCO, low FEV1, extrinsic restriction as well from kyphosis/scoliosis.
#Thoracic aorta enlargement
-Chronic.
-Noted on CT - ascending aorta, short axis diameter 4.1 cm.
-Continue metoprolol and start lisinopril.
#NSVT
-Acute.
-One 6 beat episode at 17:26 hrs on 08/09/2024 and one 4 beat episode since.
-Continue beta sheila/amiodarone.
-CTS is planning to discharge with a LifeVest. This seems reasonable.
Subjective/Interval History:
Spontaneously converted to NSR this morning.
Weight down 1.3 kg today (72 <-- 73.3). Baseline around 69 kg.
DATA:
Echo, 08/11/2024:
CONCLUSIONS
Mildly dilated left ventricle with severely reduced systolic function. Left
ventricular ejection fraction is 25 to 30%. Global hypokinesis. No
intracardiac thrombus.
Right ventricle is normal in size with mildly reduced function.
Mild mitral regurgitation.
Mild tricuspid regurgitation. Estimated PASP 25 mmHg.
Mildly dilated ascending aorta.
No prior study available for comparison.
TTE, 08/16/2024:
CONCLUSIONS
Severely reduced left ventricular systolic function. Global hypokinesis. LV
ejection fraction is 20-25%.
RV mildly dilated with mildly reduced function.
Compared to prior study on 08/11/24, biventricular function is slightly worse.
Physical Exam
Vital Signs/Labs
Vital Signs
Temp Pulse Resp BP Pulse Ox
36.6 C 78 15 114/80 93
08/19/24 06:09 08/19/24 06:09 08/19/24 06:09 08/19/24 06:09 08/19/24 06:09
08/17/24 08/18/24 08/19/24
11:59 11:59 11:59
Actual Weight 72.9 kg 73.3 kg 72 kg
08/19/24 06:01
08/19/24 06:01
PT 16.8 Sec (11.4-14.6) H 08/13/24 12:52
INR 1.38 08/13/24 12:52
APTT 29.5 Sec (23.4-35.0) 08/13/24 12:52
Magnesium 2.3 mg/dl (1.6-2.3) 08/18/24 02:50
Physical Exam
Constitutional: No acute distress and Comfortable
EENT: Anicteric and Moist mucous membranes
Cardiovascular: Rhythm & rate is regular, JVD pressure is normal, Pedal edema present, S1S2 is normal and Murmur/rub/gallop absent
Respiratory: Respiratory effort normal, Lungs clear to auscul., Wheeze Absent, Crackles Absent and Rhonchi Absent
GI: Soft, Distention absent, Flat, Non tender and Normal bowel sounds
Neuro/Psych: AO x 3
Data Reviewed
-
Date of Service: August 19, 2024
Medical Decision Making: Reviewed Test Results, Independent Historian Assessment and Test Interpretation
EKG: Tracing Personally Visualized and interpreted and Report Reviewed by me
Echo: Tracing Personally Visualized and interpreted and Report Reviewed by me
X-Ray/CT/US/MRI/NUC/PET: Image Personally Visualized and interpreted and Report Reviewed by me
Medical Tests (PFT, Pathology etc): Image Personally Visualized and interpreted and Report Reviewed by me
Labs: Labs Reviewed by me
Old Records: Reviewed
[2024-08-19] MEDS: PROTONIX 40 MG PO (08:39)
[2024-08-19] MEDS: ELIQUIS 5 MG PO (08:39)
[2024-08-19] MEDS: FARXIGA 10 MG PO (08:39)
[2024-08-19] MEDS: TOPROL XL 12.5 MG PO (08:40)
[2024-08-19] MEDS: SENOKOT-S 1 TABLET PO (08:40)
[2024-08-19] MEDS: LOW STRENGTH ASPIRIN 81 MG PO (08:40)
[2024-08-19] MEDS: MAGNESIUM OXIDE 500 MG PO (08:40)
[2024-08-19] MEDS: NEURONTIN 100 MG PO ×2 (08:40→15:36)
[2024-08-19] MEDS: LASIX 20 MG PO (08:41)
[2024-08-19] MEDS: PACERONE 200 MG PO ×2 (08:43→15:36)
[2024-08-19] MEDS: MUCINEX 1200 MG PO (08:43)
[2024-08-19] MEDS: LIDOCAINE 4% PATCH TOPICAL (09:16)
[2024-08-19] MEDS: NSS IV (09:17)
[2024-08-19] MEDS: ZESTRIL 2.5 MG PO (09:22)
--- NOTE | 2024-08-19 12:29 | PTCARENOTE ---
Rec'd pt this awake and alert sitting in chair. Pt NSR on monitor, EKG done. RA. Pt denies pain, denies sob. Pt ambulating in room and in hallway without difficulty. See worklist for VS/I and O and assessments.
[2024-08-19] MEDS: ROXICODONE 2.5 MG PO ×2 (13:59→17:48)
--- NOTE | 2024-08-19 15:23 | CM ---
CM following for DC planning needs.
Met w/ patient, spouse at bedside.
Pt. feels well and is hopeful for DC soon.
LifeVest order received; awaiting approval.
Plan is for home w/ VN thru Michael GUERRA.
CM to cont. to follow.
--- NOTE | 2024-08-19 17:22 | PTCARENOTE ---
Pt showered with assistance, tolerated well.
[2024-08-19] MEDS: LIPITOR 40 MG PO (17:30)
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
--- NOTE | 2024-08-19 18:42 | PTCARENOTE ---
discharge instructions given to patient and patients . Encouraged questions.
--- NOTE | 2024-08-19 20:06 | PTCARENOTE ---
patient discharged, IV & tele monitor removed. all discharge and follow up instructions explained and given to patient. PT wearing life vest upon discharge. Antonio lopez spent 1hour teaching PT and .
== END 2024-08-19 20:11 | disposition home health service (06) | DRG 235 ==
LOC: CVICU 09:37
PROVIDERS: Anesthesiology; Clinical Nurse Specialist Acute Care; Nurse Practitioner Primary Care; Physician Assistant Medical; Physician Assistant Surgical; ADMITTING PHYSICIAN Thoracic Surgery (Cardiothoracic Vascular Surgery); ATTENDING PHYSICIAN Thoracic Surgery (Cardiothoracic Vascular Surgery); CONSULT PHYSICIAN Internal Medicine Cardiovascular Disease; CONSULT PHYSICIAN Internal Medicine Critical Care Medicine; FAMILY PHYSICIAN Internal Medicine
PROC: 021109W Bypass Coronary Artery, Two Arteries from Aorta with Autologous Venous Tissue, Open Approach (ICD-10-PCS; 2024-08-13)
PROC: 06BP4ZZ Excision of Right Saphenous Vein, Percutaneous Endoscopic Approach (ICD-10-PCS; 2024-08-13)
PROC: 02100Z9 Bypass Coronary Artery, One Artery from Left Internal Mammary, Open Approach (ICD-10-PCS; 2024-08-13)
PROC: B24BZZ4 Ultrasonography of Heart with Aorta, Transesophageal (ICD-10-PCS; 2024-08-13)
PROC: 02L70CK Occlusion of Left Atrial Appendage with Extraluminal Device, Open Approach (ICD-10-PCS; 2024-08-13)
DX: I21.4 Non-ST elevation (NSTEMI) myocardial infarction (principal); I50.23 Acute on chronic systolic (congestive) heart failure; I47.20 Ventricular tachycardia, unspecified; J98.11 Atelectasis; I71.21 Aneurysm of the ascending aorta, without rupture; I11.0 Hypertensive heart disease with heart failure; E78.5 Hyperlipidemia, unspecified; F41.1 Generalized anxiety disorder; M54.30 Sciatica, unspecified side; G89.29 Other chronic pain; I25.10 Atherosclerotic heart disease of native coronary artery without angina pectoris; M41.9 Scoliosis, unspecified; M19.90 Unspecified osteoarthritis, unspecified site; I25.5 Ischemic cardiomyopathy; J43.9 Emphysema, unspecified; I45.10 Unspecified right bundle-branch block; I48.91 Unspecified atrial fibrillation; E86.1 Hypovolemia; Z79.82 Long term (current) use of aspirin; Z79.899 Other long term (current) drug therapy; Z82.49 Family history of ischemic heart disease and other diseases of the circulatory system; Z86.73 Personal history of transient ischemic attack (TIA), and cerebral infarction without residual deficits; Z87.820 Personal history of traumatic brain injury; Z87.891 Personal history of nicotine dependence
CPT/HCPCS: 93308; 94727; 94729; 70355; 71045; 71046; 71250; 71275; 74174; 80048; 80053; 80076; 81003; 82330; 82565; 82805; 82810; 82947; 82962; 83036; 83735; 84132; 84302; 84520; 85014; 85018; 85027; 85049; 85610; 85730; 86803; 86850; 86900; 86901; 86920; 93005; 93306; 93312; 93320; 93321; 93325; 93880; 94002; 94060; 94640; 97116; 97162; 97164; 97165; 97168; 97535; C1713; Q9950; Q9967